=== PATIENT | male | born 1980 | race Caucasian/White ===

== ENCOUNTER 2020-11-15 06:22 | Observation (INO) | payer SELFPAY ==
--- OUTSIDE RECORDS SUMMARY | 2020-11-15 06:26 | XMS REPORT | Continuity of Care Document ---
:1980 Author Organization [facility] Address [address] [place] [address] Care Team Providers Name Role Phone KUN MEZA Attending Clinician Unavailable Payers Payer Name Policy Type Policy Number Effective Date Expiration Date S ource Problems This patient has no known problems. Allergies, Adverse Reactions, Alerts Allergy Allergy Status Severity Reaction(s) Onset Inactive Treating Comm ents Source Name Type Date Date Clinician alprazol DA Active U 2019-07 [facility] am 08-20 [place] 00:00: [facility] [place] clonazep DA Active U 2019-07 [facility] am 08-20 [place] [facility]: [facility] 00 are [place] alprazol DA Active U 2019-07 [facility] am 2- [place] 00:[facility]: [facility] 00 are [place] morphine DA Active AL 2019-07 [facility] 1-17 [place] 00:00: [facility] 00 are [place] morphine DA Active U [facility] 3-08 [place] 00:00: [facility] 00 are [place] morphine DA Active U [facility] - [place] 00:00: [facility] 00 are [place] Medications This patient has no known medications. Procedures This patient has no known procedures. Encounters Start End Encounter Admission Attending Care Care Encounter Source Date/Time Date/Time Type Type Clinicians Facility Department ID 2020-06-05 2020-06-05 Emergency [facility] [id number] [place] 00:00:00 00:00:00 KUN [address] Results Test Description Test Time Test Comments Results Result Comments Source BASIC METABOLIC PANEL 2020-07-27 21:40:00 Test Item Value Reference Range Interpretation Comme nts SODIUM (test code = NA) 139 mmol/L 136-145 N POTASSIUM (test code = K) 3.8 MMOL/L 3.6-5.2 N CHLORIDE (test code = CL) 104 MMOL/L 98-110 N CARBON DIOXIDE (test code = 27 mEq/L 24-32 N CO2) GLUCOSE (test code = GLU) 106 mg/dL 70-110 N BLOOD UREA NITROGEN (test 14 mg/dL 7-18 N code = BUN) GLOMERULAR FILTRATION RATE >=60 max estimate >60 The estimated glomerular (test code = GFR) filtration rate is computed usingpatient ra ce, age (>18), sex, and serum creatinine. If anyof the needed data amena ments are missing the Lab oratory cannot compute an estimation of the glomerul ar filtration rate. CREATININE (test code = 0.88 mg/dL 0.60-1.30 N CREAT) CALCIUM (test code = CA) 9.1 mg/dL 8.6-10.3 N BASIC METABOLIC [id number] 21:36:00 Test Item Value Reference Range Interpretation Comments SODIUM (test code = NA) mmol/L 136-145 POTASSIUM (test code = K) 3.8 MMOL/L 3.6-5.2 N CHLORIDE (test code = CL) MMOL/L 98-110 CARBON DIOXIDE (test code = CO2) mEq/L 24-32 GLUCOSE (test code = GLU) mg/dL 70-110 BLOOD UREA NITROGEN (test code = mg/dL 7-18 BUN) GLOMERULAR FILTRATION RATE (test >60 code = GFR) CREATININE (test code = CREAT) mg/dL 0.60-1.30 CALCIUM (test code = CA) mg/dL 8.6-10.3 BASIC METABOLIC [id number] 21:36:00 Test Item Value Reference Range Interpretation Comments SODIUM (test code = NA) 139 mmol/L 136-145 N POTASSIUM (test code = K) 3.8 MMOL/L 3.6-5.2 N CHLORIDE (test code = CL) 104 MMOL/L 98-110 N CARBON DIOXIDE (test code = CO2) 27 mEq/L 24-32 N GLUCOSE (test code = GLU) 106 mg/dL 70-110 N BLOOD UREA NITROGEN (test code = mg/dL 7-18 BUN) GLOMERULAR FILTRATION RATE (test >60 code = GFR) CREATININE (test code = CREAT) mg/dL 0.60-1.30 CALCIUM (test code = CA) 9.1 mg/dL 8.6-10.3 N CBC W/AUTO [id number] 21:32:00 Test Item Value Reference Range Interpretation Comments WHITE BLOOD CELL (test code = WBC) 8.93 K/mm3 5.0-12.0 N RED BLOOD CELL (test code = RBC) 5.92 M/mm3 4.70-6.10 N HEMOGLOBIN (test code = HGB) 15.8 G/DL 14.0-18.0 N HEMATOCRIT (test code = HCT) 47.9 % 38.8-50.0 N MEAN CELL VOLUME (test code = MCV) 81 fL 80-94 N MEAN CELL HGB (test code = MCH) 26.7 PGM 27-31 L MEAN CELL HGB CONCENTRATION (test 33.0 G/DL 33-37 N code = MCHC) RED CELL DISTRIBUTION WIDTH (test 13.4 % 11.6-16.2 N code = RDW) PLATELET COUNT (test code = PLT) 314 K/mm3 130-400 N MEAN PLATELET VOLUME (test code = 10.5 fl 7.4-10.4 H MPV) NEUTROPHIL % (test code = NT%) 64.9 % 43-65 N IMMATURE GRANULOCYTE % (test code 0.2 % 0.0-2.0 N = IG%) LYMPHOCYTE % (test code = LY%) 21.5 % 20.5-45.5 N MONOCYTE % (test code = MO%) 11.2 % 5.5-11.7 N EOSINOPHIL % (test code = EO%) 1.3 % 0.9-2.9 N BASOPHIL % (test code = BA%) 0.9 % 0.2-1.0 N NUCLEATED RBC % (test code = 0.0 % 0-1.0 N NRBC%) NEUTROPHIL # (test code = NT#) 5.79 K/mm3 2.2-4.8 H LYMPHOCYTE # (test code = LY#) 1.92 K/mm3 1.3-2.9 N MONOCYTE # (test code = MO#) 1.00 K/mm3 0.3-0.8 H EOSINOPHIL # (test code = EO#) 0.12 K/MM3 0.0-0.2 N BASOPHIL # (test code = BA#) 0.08 K/mm3 0.0-0.1 N TROPONIN I [id number] 21:28:00 Test Item Value Reference Range Interpretation Comments TROPONIN I RAPID 0.00 ng/mL 0.00-0.08 N ISTAT (test code = TROPONIN I TROPIRAP) CRITERIA0.00-0. 08 ng/mL - Negative>0.08 n g/mL - Positive The us e of serial sampling and te sting protocol is are commended practice.An amena vated troponin level alone is often not suffi cient fordiagnosis of myocardial infarction. Tro ponin results obtaine d by different assay s may vary.Evaluation of the extent of myoca rdial damage based on increase of troponin would be valid only if similar methodology is used. - XR CHEST 1 [id number] 21:02:00 [facility] 1980 Sex: MPatient Name: GARY JEFFREY Unit No: [id number] EXAMS: CPT: [id number] XR CHEST 1 V 20522 AP CHEST 1 VIEW COMPARISON: June 05, 2020 HISTORY: Chest Pain FINDINGS: There is no focal lung consolidation.There is no pleural effusion. There is no pneumothorax. The cardiac silhouette is normal. There is no acute osseous abnormality. IMPRESSION: 1. No acute cardiopulmonary findings at 2101 Reported and signed by: Esmer Norton MD CC: Ezekiel Barkley; Masha Schwarz GOLF INSTRUCTOR; Newton Renee MD Technologist: AMADEO Jones Time: DAP (Gy m2): Air Kerma (mGy): Trscr Dt/Tm: 07/27/2020 (2101) by:[email or web address] Orig Print D/T: S: 07/27/2020 (2104) BATCH NO: N/A Name: GARY JEFFREY [facility] Phys: Masha Castro NP [address] [facility] : 1980 Age: 40 Sex: Roni [place] Loc: T.ERS Exam Date: 07/27/2020 Status: REG ER PH: FAX: PAGE 1 Signed ReportCBC W/AUTO [id number] 21:09:00 Test Item Value Reference Range Interpretation Comments WHITE BLOOD CELL (test code = WBC) 8.96 K/mm3 5.0-12.0 N RED BLOOD CELL (test code = RBC) 6.30 M/mm3 4.70-6.10 H HEMOGLOBIN (test code = HGB) 16.5 G/DL 14.0-18.0 N HEMATOCRIT (test code = HCT) 50.7 % 38.8-50.0 H MEAN CELL VOLUME (test code = MCV) 81 fL 80-94 N MEAN CELL HGB (test code = MCH) 26.2 PGM 27-31 L MEAN CELL HGB CONCENTRATION (test 32.5 G/DL 33-37 L code = MCHC) RED CELL DISTRIBUTION WIDTH (test 13.5 % 11.6-16.2 N code = RDW) PLATELET COUNT (test code = PLT) 339 K/mm3 130-400 N MEAN PLATELET VOLUME (test code = 10.7 fl 7.4-10.4 H MPV) NEUTROPHIL % (test code = NT%) 63.0 % 43-65 N IMMATURE GRANULOCYTE % (test code 0.2 % 0.0-2.0 N = IG%) LYMPHOCYTE % (test code = LY%) 24.7 % 20.5-45.5 N MONOCYTE % (test code = MO%) 10.9 % 5.5-11.7 N EOSINOPHIL % (test code = EO%) 0.6 % 0.9-2.9 L BASOPHIL % (test code = BA%) 0.6 % 0.2-1.0 N NUCLEATED RBC % (test code = 0.0 % 0-1.0 N NRBC%) NEUTROPHIL # (test code = NT#) 5.65 K/mm3 2.2-4.8 H LYMPHOCYTE # (test code = LY#) 2.21 K/mm3 1.3-2.9 N MONOCYTE # (test code = MO#) 0.98 K/mm3 0.3-0.8 H EOSINOPHIL # (test code = EO#) 0.05 K/MM3 0.0-0.2 N BASOPHIL # (test code = BA#) 0.05 K/mm3 0.0-0.1 N VANCOMYCIN [id number] 08:37:00 Test Item Value Reference Range Interpretation Comments VANCOMYCIN TROUGH (test code = 11.0 ug/ml 10.0-20.0 N VANCT) VANCOMYCIN [id number] 20:20:00 Test Item Value Reference Range Interpretation Comments VANCOMYCIN TROUGH (test code = 13.7 ug/ml 10.0-20.0 N VANCT) COVID 19 Asymptomatic IH [id number] 11:59:00 Test Item Value Reference Range Interpretation Comments COVID 19 Asymptomatic NEGATIVE Negative NEGAT SELVIN RESULTS IH AG (test code = SHOULD BE TREATED COVNONPUIAG) PRESUMPTIVE ANDCONFIRMED WT IH A MOLECULAR ASSAY , IF NECESSARY FOR PATIENTMANAGEME NT. NEGATIVE RESULT S DO NOT RULE OUT CO VID-19 ANDSHOULD NOT B E USED THE SOLE BAS IS FOR TREATMENT ORPAT IENT MANAGEMENT DECI SIONS, INCLUDING INFEC TION CONTROLDECISION S. NEGATIVE RESULT S SHOULD BE CONSI DERED IN THECONTEXT O F A PATIENT'S RECEN T EXPOSURES, HIST ORY AND THEPRESENCE OF CLINICAL SIGNS AND SYMPTOMS CONSIS TENT WITHCOVID-19. COMPREHENSIVE METABOLIC [id number] 16:12:00 Test Item Value Reference Range Interpretation Comments SODIUM (test code 139 mmol/L 136-145 N = NA) POTASSIUM (test 3.8 MMOL/L 3.6-5.2 N code = K) CHLORIDE (test 103 MMOL/L 98-110 N code = CL) CARBON DIOXIDE 28 mEq/L 24-32 N (test code = CO2) GLUCOSE (test code 88 mg/dL 70-110 N = GLU) BLOOD UREA 9 mg/dL 7-18 N NITROGEN (test code = BUN) GLOMERULAR >=60 max >60 The estimated FILTRATION RATE estimate glomerular f iltration (test code = GFR) rate is co mputed usingpatient ra ce, age (>18), sex, and serum creatinin e. If anyof the neede d data elements are mi ssing the Laboratory cannot compute an alejandro mation of the glomerul ar filtration rate . CREATININE (test 0.83 mg/dL 0.60-1.30 N code = CREAT) TOTAL PROTEIN 7.0 g/dL 6.0-8.3 N (test code = PROT) ALBUMIN (test code 3.4 g/dL 3.2-5.5 N = ALB) CALCIUM (test code 8.9 mg/dL 8.6-10.3 N = CA) BILIRUBIN TOTAL 0.6 mg/dL 0.2-1.0 N D-gxsung-g-b enzoquino (test code = BILT) ne imine (NAPQI), a metabolite ofacetaminophen (paracetamol), may generate errone ously lowresults in s amples for patients th at have taken toxi c dosesof acetami nophen (paracetamol). SGOT/AST (test 22 UNITS/L 10-42 N code = AST) SGPT/ALT (test 25 UNITS/L 10-40 N code = ALT) ALKALINE 77 UNITS/L 38-126 N PHOSPHATASE (test code = ALKP) CBC W/O [id number] 15:54:00 Test Item Value Reference Range Interpretation Comments WHITE BLOOD CELL (test code = 10.78 K/mm3 5.0-12.0 N WBC) RED BLOOD CELL (test code = RBC) 5.22 M/mm3 4.70-6.10 N HEMOGLOBIN (test code = HGB) 13.9 G/DL 14.0-18.0 L HEMATOCRIT (test code = HCT) 42.9 % 38.8-50.0 N MEAN CELL VOLUME (test code = 82 fL 80-94 N MCV) MEAN CELL HGB (test code = MCH) 26.6 PGM 27-31 L MEAN CELL HGB CONCENTRATION (test 32.4 G/DL 33-37 L code = MCHC) RED CELL DISTRIBUTION WIDTH (test 13.4 % 11.6-16.2 N code = RDW) PLATELET COUNT (test code = PLT) 370 K/mm3 130-400 N [id number] 05:16:00 Test Item Value Reference Range Interpretation Comments PHOSPHOROUS (test code = PHOS) 2.2 mg/dL 2.5-4.9 L [id number] 05:16:00 Test Item Value Reference Range Interpretation Comments MAGNESIUM (test code = MAG) 2.3 mg/dL 1.7-2.8 N THYROID STIMULATING [id number] 05:16:00 Test Item Value Reference Range Interpretation Comments THYROID STIMULATING HORMONE (test 3.52 mIU/mL 0.38-5.60 N code = TSH) [id number] 04:57:00 Test Item Value Reference Range Interpretation Comments PHOSPHOROUS (test code = PHOS) 2.2 mg/dL 2.5-4.9 L [id number] 04:57:00 Test Item Value Reference Range Interpretation Comments MAGNESIUM (test code = MAG) 2.3 mg/dL 1.7-2.8 N THYROID STIMULATING [id number] 04:57:00 Test Item Value Reference Range Interpretation Comments THYROID STIMULATING HORMONE (test mIU/mL 0.38-5.60 code = TSH) DRUGS OF ABUSE SCREEN [id number] 03:49:00 Test Item Value Reference Range Interpretation Comments UR COCAINE (test code = COCAU) NEGATIVE NEGATIVE UR METHAMPHETAMINE (test code = NEGATIVE NEGATIVE METHAMPHU) UR CANABINOIDS (test code = CANU) NEGATIVE NEGATIVE UR AMPHETAMINE (test code = AMPHU) NEGATIVE NEGATIVE UR BARBITURATE (test code = BARBQLU) NEGATIVE NEGATIVE UR BENZODIAZEPINE (test code = NEGATIVE NEGATIVE BENZU) METHADONE (test code = METHDU) NEGATIVE NEGATIVE PROPOXYPHENE SCREEN (test code = NEGATIVE NEGATIVE PROPXSQ) UR OPIATES QUAL (test code = NEGATIVE NEGATIVE OPIAQLU) OXYCODONE (test code = OXYCOD) NEGATIVE NEGATIVE UR TRICYCLICS (test code = TRICYCU) NEGATIVE NEGATIVE UR PHENCYCLIDINE (PCP) (test code = NEGATIVE NEGATIVE PHENCU) UR BUPRENORPHINE QUAL (test code = NEGATIVE NEGATIVE BUPRESCRT) BASIC METABOLIC [id number] 03:09:00 Test Item Value Reference Range Interpretation Comments SODIUM (test code 138 mmol/L 136-145 N = NA) POTASSIUM (test 4.0 MMOL/L 3.6-5.2 N code = K) CHLORIDE (test 105 MMOL/L 98-110 N code = CL) CARBON DIOXIDE 25 mEq/L 24-32 N (test code = CO2) GLUCOSE (test code 101 mg/dL 70-110 N = GLU) BLOOD UREA 25 mg/dL 7-18 H NITROGEN (test code = BUN) GLOMERULAR >=60 max >60 The estimated FILTRATION RATE estimate glomerular (test code = GFR) filtration rate is computed usingpatient ra ce, age (>18), sex, and serum creatinin e. If anyof the neede d data elements a re missing the Laboratory howie ot compute an estimation of t he glomerular filtration rate . CREATININE (test 1.05 mg/dL 0.60-1.30 N code = CREAT) CALCIUM (test code 9.7 mg/dL 8.6-10.3 N = CA) CBC W/AUTO [id number] 03:08:00 Test Item Value Reference Range Interpretation Comments WHITE BLOOD CELL (test code = 11.38 K/mm3 5.0-12.0 N WBC) RED BLOOD CELL (test code = RBC) 5.93 M/mm3 4.70-6.10 N HEMOGLOBIN (test code = HGB) 15.9 G/DL 14.0-18.0 N HEMATOCRIT (test code = HCT) 48.2 % 38.8-50.0 N MEAN CELL VOLUME (test code = 81 fL 80-94 N MCV) MEAN CELL HGB (test code = MCH) 26.8 PGM 27-31 L MEAN CELL HGB CONCENTRATION (test 33.0 G/DL 33-37 N code = MCHC) RED CELL DISTRIBUTION WIDTH (test 13.2 % 11.6-16.2 N code = RDW) PLATELET COUNT (test code = PLT) 325 K/mm3 130-400 N MEAN PLATELET VOLUME (test code = 10.9 fl 7.4-10.4 H MPV) NEUTROPHIL % (test code = NT%) 65.3 % 43-65 H IMMATURE GRANULOCYTE % (test code 0.5 % 0.0-2.0 N = IG%) LYMPHOCYTE % (test code = LY%) 18.0 % 20.5-45.5 L MONOCYTE % (test code = MO%) 14.8 % 5.5-11.7 H EOSINOPHIL % (test code = EO%) 0.7 % 0.9-2.9 L BASOPHIL % (test code = BA%) 0.7 % 0.2-1.0 N NUCLEATED RBC % (test code = 0.0 % 0-1.0 N NRBC%) NEUTROPHIL # (test code = NT#) 7.43 K/mm3 2.2-4.8 H LYMPHOCYTE # (test code = LY#) 2.05 K/mm3 1.3-2.9 N MONOCYTE # (test code = MO#) 1.68 K/mm3 0.3-0.8 H EOSINOPHIL # (test code = EO#) 0.08 K/MM3 0.0-0.2 N BASOPHIL # (test code = BA#) 0.08 K/mm3 0.0-0.1 N BASIC METABOLIC [id number] 03:07:00 Test Item Value Reference Range Interpretation Comments SODIUM (test code = NA) 138 mmol/L 136-145 N POTASSIUM (test code = K) 4.0 MMOL/L 3.6-5.2 N CHLORIDE (test code = CL) 105 MMOL/L 98-110 N CARBON DIOXIDE (test code = CO2) 25 mEq/L 24-32 N GLUCOSE (test code = GLU) 101 mg/dL 70-110 N BLOOD UREA NITROGEN (test code = mg/dL 7-18 BUN) GLOMERULAR FILTRATION RATE (test >60 code = GFR) CREATININE (test code = CREAT) mg/dL 0.60-1.30 CALCIUM (test code = CA) 9.7 mg/dL 8.6-10.3 N BASIC METABOLIC [id number] 03:05:00 Test Item Value Reference Range Interpretation Comments SODIUM (test code = NA) mmol/L 136-145 POTASSIUM (test code = K) 4.0 MMOL/L 3.6-5.2 N CHLORIDE (test code = CL) MMOL/L 98-110 CARBON DIOXIDE (test code = CO2) mEq/L 24-32 GLUCOSE (test code = GLU) mg/dL 70-110 BLOOD UREA NITROGEN (test code = mg/dL 7-18 BUN) GLOMERULAR FILTRATION RATE (test >60 code = GFR) CREATININE (test code = CREAT) mg/dL 0.60-1.30 CALCIUM (test code = CA) mg/dL 8.6-10.3 TROPONIN I [id number] 02:43:00 Test Item Value Reference Range Interpretation Comments TROPONIN I RAPID 0.00 ng/mL 0.00-0.08 N ISTAT (test code = TROPONIN I TROPIRAP) CRITERIA0.00-0. 08 ng/mL - Negative>0.08 n g/mL - Positive The us e of serial sampling and te sting protocol is are commended practice.An amena vated troponin level alone is often not suffi cient fordiagnosis of myocardial infarction. Tro ponin results obtaine d by different assay s may vary.Evaluation of the extent of myoca rdial damage based on increase of troponin would be valid only if similar methodology is used. - XR CHEST 1 [id number] 02:21:00 [facility] 1980 Sex: MPatient Name: GARY JEFFREY Unit No: [id number] EXAMS: CPT: [id number] XR CHEST 1 V 00006 CHEST 1 VIEW CLINICAL HISTORY: Chest pain COMPARISON: 05/21/2020. A single frontal view of the chest is submitted. FINDINGS: The cardiac silhouette is normal in size. Vascularity appears normal.The lungs are clear. No pleural effusion or pneumothorax is seen. No osseous abnormalities are seen. IMPRESSION: Negative chest radiograph. at 0221 Reported and signed by: Davonte Ceron MD CC: Oswaldo Cordoba MD; Ezekiel Wick MD Technologist: Mo Bermudez Fluoro Time: DAP (Gy m2): Air Kerma (mGy): Trscr Dt/Tm: 06/05/2020 (220) by:[email or web address] Orig Print D/T: S: 06/05/2020 (0224) BATCH NO: N/A Name: GARY JEFFREY [facility] Ab[facility] Phys: BERDANIEL.Emy - Oswaldo Cordoba Michelle [address] [facility] : 1980 Age: 40 Sex: Michelle [place] Loc: T.ERS Exam Date: 06/05/2020 Status: REG ER PH: FAX: PAGE 1 Signed ReportCBC W/AUTO [id number] 00:16:00 Test Item Value Reference Range Interpretation Comments WHITE BLOOD CELL (test code = 10.58 K/mm3 5.0-12.0 N WBC) RED BLOOD CELL (test code = RBC) 6.18 M/mm3 4.70-6.10 H HEMOGLOBIN (test code = HGB) 16.6 G/DL 14.0-18.0 N HEMATOCRIT (test code = HCT) 50.0 % 38.8-50.0 N MEAN CELL VOLUME (test code = 81 fL 80-94 N MCV) MEAN CELL HGB (test code = MCH) 26.9 PGM 27-31 L MEAN CELL HGB CONCENTRATION (test 33.2 G/DL 33-37 N code = MCHC) RED CELL DISTRIBUTION WIDTH (test 13.2 % 11.6-16.2 N code = RDW) PLATELET COUNT (test code = PLT) 322 K/mm3 130-400 N MEAN PLATELET VOLUME (test code = 11.0 fl 7.4-10.4 H MPV) NEUTROPHIL % (test code = NT%) 71.9 % 43-65 H IMMATURE GRANULOCYTE % (test code 0.4 % 0.0-2.0 N = IG%) LYMPHOCYTE % (test code = LY%) 17.6 % 20.5-45.5 L MONOCYTE % (test code = MO%) 8.8 % 5.5-11.7 N EOSINOPHIL % (test code = EO%) 0.8 % 0.9-2.9 L BASOPHIL % (test code = BA%) 0.5 % 0.2-1.0 N NUCLEATED RBC % (test code = 0.0 % 0-1.0 N NRBC%) NEUTROPHIL # (test code = NT#) 7.62 K/mm3 2.2-4.8 H LYMPHOCYTE # (test code = LY#) 1.86 K/mm3 1.3-2.9 N MONOCYTE # (test code = MO#) 0.93 K/mm3 0.3-0.8 H EOSINOPHIL # (test code = EO#) 0.08 K/MM3 0.0-0.2 N BASOPHIL # (test code = BA#) 0.05 K/mm3 0.0-0.1 N REDRAW-CLOTTED [id number]/[id number] 2346BASIC METABOLIC [id number] 23:52:00 Test Item Value Reference Range Interpretation Comments SODIUM (test code 137 mmol/L 136-145 N = NA) POTASSIUM (test 5.2 MMOL/L 3.6-5.2 N code = K) CHLORIDE (test 102 MMOL/L 98-110 N code = CL) CARBON DIOXIDE 22 mEq/L 24-32 L (test code = CO2) GLUCOSE (test code 95 mg/dL 70-110 N = GLU) BLOOD UREA 18 mg/dL 7-18 N NITROGEN (test code = BUN) GLOMERULAR >=60 max >60 The estimated FILTRATION RATE estimate glomerular (test code = GFR) filtration rate is computed usingpatient ra ce, age (>18), sex, and serum creatinin e. If anyof the neede d data elements a re missing the Laboratory howie ot compute an estimation of t he glomerular filtration rate . CREATININE (test 0.94 mg/dL 0.60-1.30 N code = CREAT) CALCIUM (test code 9.8 mg/dL 8.6-10.3 N = CA) REDRAW-HEMOSVEN 9BASIC METABOLIC [id number] 23:48:00 Test Item Value Reference Range Interpretation Comments SODIUM (test code = NA) mmol/L 136-145 POTASSIUM (test code = K) 5.2 MMOL/L 3.6-5.2 N CHLORIDE (test code = CL) MMOL/L 98-110 CARBON DIOXIDE (test code = CO2) mEq/L 24-32 GLUCOSE (test code = GLU) mg/dL 70-110 BLOOD UREA NITROGEN (test code = mg/dL 7-18 BUN) GLOMERULAR FILTRATION RATE (test >60 code = GFR) CREATININE (test code = CREAT) mg/dL 0.60-1.30 CALCIUM (test code = CA) mg/dL 8.6-10.3 REDRAW-HEMOSVEN 2319BASIC METABOLIC [id number] 23:48:00 Test Item Value Reference Range Interpretation Comments SODIUM (test code = NA) 137 mmol/L 136-145 N POTASSIUM (test code = K) 5.2 MMOL/L 3.6-5.2 N CHLORIDE (test code = CL) 102 MMOL/L 98-110 N CARBON DIOXIDE (test code = CO2) 22 mEq/L 24-32 L GLUCOSE (test code = GLU) 95 mg/dL 70-110 N BLOOD UREA NITROGEN (test code = mg/dL 7-18 BUN) GLOMERULAR FILTRATION RATE (test >60 code = GFR) CREATININE (test code = CREAT) mg/dL 0.60-1.30 CALCIUM (test code = CA) 9.8 mg/dL 8.6-10.3 N REDRAW-HEMOSVEN [id number] - GLYCOSYLATED [id number] 11:49:00 Test Item Value Reference Range Interpretation Comments GLYCOSYLATED HEMOGLOBIN (HA1C) (test 5.2 % 4.0-6.0 N code = GLYHGB) LIPID PROFILE (CORONARY RISK)2020-05-22 05:40:00 Test Item Value Reference Range Interpretation Comments TRIGLYCERIDES (test 87 mg/dL 35-160 N N-acetyl -p-benzoquinone code = TRIG) imine (NAPQI), a metabolite ofacetaminophen (paracetamol), may generate errone ously lowresults in s amples for patients th at have taken toxic dos esof acetaminophen (paracetamol). CHOLESTEROL (test 209 mg/dL 50-200 H code = CHOL) HDL CHOLESTEROL (test 36 mg/dL 29-71 N code = HDL) LIPOPROTEIN LDL HAYDEN 156 MG/DL 10-130 H (test code = LDLC) CORONARY RISK FACTOR 5.81 (test code = RISK) CHOL/HDL RISK MALE: 1/2 AVG 3.43 FEMALE: 1/2 AV G 3.27 AVG 4.97 AV G 4.44 2X AVG 9.55 2X AV G 7.05 3X AVG 23.39 3X AVG 11.04~~~~~~~~~~ ~~~~~~~~ ~~~~~~~~~~~~~~~ ~~~~~~~~ ~~~~~~~~~~~~~~~ ~~~~Nanette onal Cholestero l Education (NCEP ) Guidelines:~~~~ ~~~~~~~~ ~~~~~~~~~~~~~~~ ~~~~~~~~ ~~~~~~~~~~~~~~~ ~~~~~~~~ ~~ HDL Cholesterol<4 0mg/dL: HDL Cholesterol (Major risk factor for CHD)>60mg/dL: H DL Cholesterol (Ne gative risk factor for CHD)40-59mg/dL: Borderline Risk LD L Cholesterol<1 00mg/dL: Desirable LDL-C [id number] 0-159mg/ dL: Borderline High Risk LDL-C [id number] 0-189mg/ dL: High risk L DL-C concentration H DL-LDL Cholesterol is affected by a number of factors suchas smoking, age and sex.~~~~~~~~~~~ ~~~~~~~~ ~~~~~~~~~~~~~~~ ~~~~~~~~ ~~~~~~~~~~~~~~~ ~~~ [id number] 05:38:00 Test Item Value Reference Range Interpretation Comments TROPONIN-I 0.01 ng/mL 0.00-0.03 N Correlation wit h serial (test code = results, other cardiac TROPI) markers andclin ical findings is necessary to determine the clinicalsignifi cance of this result. Results using different metho dologies should not be c omparedto one another as dannielle titative results may lance y by method. [id number] 00:33:00 Test Item Value Reference Range Interpretation Comments TROPONIN-I 0.00 ng/mL 0.00-0.03 N Correlation wit h serial (test code = results, other cardiac TROPI) markers andclin ical findings is necessary to determine the clinicalsignifi cance of this result. Results using different metho dologies should not be c omparedto one another as dannielle titative results may lance y by method. [id number] 00:33:00 Test Item Value Reference Range Interpretation Comments D-DIMER (test 245 ng/mLFEU 0-500 N THE DDIMER MET HOD IS USED IN code = THE EXCLUSION O F DEEP DDIMER) VEINTHROMBOSIS AND/OR PULMONARY EMBOL ISM AND THE CLINICAL CUT-OF F VALUE FOR EXCLUSION (500 NG/ML FEU) OF THESE CONDITION SIS VALIDATED BY THE MANUFACT URER OF THE METHOD. A NEGAT SELVIN DDIMER RESULT WHEN COM BINED WITH A CLINICALASSESSM ENT OF LOW PRETEST PROBABI LITY HAS BEEN SHOWN TO HAVEA HIGH NEGATIVE PREDICTIVE VALU E OF DVT OR PE. D-DIMER RAFFI UES >500 ng/mL ARE NOT D IAGNOSTIC FOR DVT,PEOR DIC WI THOUT OTHER CONFIRMATORY TE STS AND APPROPRIATECLIN ICAL EVALUATIONS. [id number] 19:42:00 Test Item Value Reference Range Interpretation Comments TROPONIN-I 0.00 ng/mL 0.00-0.03 N Correlation wit h serial (test code = results, other cardiac TROPI) markers andclin ical findings is necessary to determine the clinicalsignifi cance of this result. Results using different metho dologies should not be c omparedto one another as dannielle titative results may lance y by method. BASIC METABOLIC [id number] 14:16:00 Test Item Value Reference Range Interpretation Comments SODIUM (test code 137 mmol/L 136-145 N = NA) POTASSIUM (test 4.0 MMOL/L 3.6-5.2 N code = K) CHLORIDE (test 101 MMOL/L 98-110 N code = CL) CARBON DIOXIDE 25 mEq/L 24-32 N (test code = CO2) GLUCOSE (test code 93 mg/dL 70-110 N = GLU) BLOOD UREA 16 mg/dL 7-18 N NITROGEN (test code = BUN) GLOMERULAR >=60 max >60 The estimated FILTRATION RATE estimate glomerular (test code = GFR) filtration rate is computed usingpatient ra ce, age (>18), sex, and serum creatinin e. If anyof the neede d data elements a re missing the Laboratory howie ot compute an estimation of t he glomerular filtration rate . CREATININE (test 1.10 mg/dL 0.60-1.30 N code = CREAT) CALCIUM (test code 9.4 mg/dL 8.6-10.3 N = CA) LIVER FUNCTION [id number] 14:16:00 Test Item Value Reference Range Interpretation Comments TOTAL PROTEIN (test 8.1 g/dL 6.0-8.3 N code = PROT) ALBUMIN (test code = 4.5 g/dL 3.2-5.5 N ALB) BILIRUBIN TOTAL 1.0 mg/dL 0.2-1.0 N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 mg/dL 8.6-10.3 N = CA) BILIRUBIN TOTAL 1.5 mg/dL 0.2-1.0 H K-qokdoq-x-b enzoquino (test code = BILT) ne imine (NAPQI), a metabolite ofacetaminophen (paracetamol), may generate errone ously lowresults in s amples for patients th at have taken toxi c dosesof acetami nophen (paracetamol). SGOT/AST (test 13 UNITS/L 10-42 N code = AST) SGPT/ALT (test 21 UNITS/L 10-40 N code = ALT) ALKALINE 56 UNITS/L 38-126 N PHOSPHATASE (test code = ALKP) [id number] 07:01:00 Test Item Value Reference Range Interpretation Comments PHOSPHOROUS (test code = PHOS) 2.6 mg/dL 2.5-4.9 N [id number] 07:01:00 Test Item Value Reference Range Interpretation Comments MAGNESIUM (test code = MAG) 2.0 mg/dL 1.7-2.8 N CBC W/AUTO [id number] 06:31:00 Test Item Value Reference Range Interpretation Comments WHITE BLOOD CELL (test code = 10.80 K/mm3 5.0-12.0 N WBC) RED BLOOD CELL (test code = RBC) 5.50 M/mm3 4.70-6.10 N HEMOGLOBIN (test code = HGB) 14.6 G/DL 14.0-18.0 N HEMATOCRIT (test code = HCT) 45.5 % 37.0-49.0 N MEAN CELL VOLUME (test code = 83 fL 80-94 N MCV) MEAN CELL HGB (test code = MCH) 26.5 PGM 27-31 L MEAN CELL HGB CONCENTRATION (test 32.1 G/DL 33-37 L code = MCHC) RED CELL DISTRIBUTION WIDTH (test 13.2 % 11.6-16.2 N code = RDW) PLATELET COUNT (test code = PLT) 240 K/mm3 130-400 N MEAN PLATELET VOLUME (test code = 10.7 fl 7.4-10.4 H MPV) NEUTROPHIL % (test code = NT%) 71.8 % 43-65 H IMMATURE GRANULOCYTE % (test code 0.5 % 0.0-2.0 N = IG%) LYMPHOCYTE % (test code = LY%) 13.9 % 20.5-45.5 L MONOCYTE % (test code = MO%) 11.3 % 5.5-11.7 N EOSINOPHIL % (test code = EO%) 1.9 % 0.9-2.9 N BASOPHIL % (test code = BA%) 0.6 % 0.2-1.0 N NUCLEATED RBC % (test code = 0.0 % 0-1.0 N NRBC%) NEUTROPHIL # (test code = NT#) 7.75 K/mm3 2.2-4.8 H LYMPHOCYTE # (test code = LY#) 1.50 K/mm3 1.3-2.9 N MONOCYTE # (test code = MO#) 1.22 K/mm3 0.3-0.8 H EOSINOPHIL # (test code = EO#) 0.21 K/MM3 0.0-0.2 H BASOPHIL # (test code = BA#) 0.07 K/mm3 0.0-0.1 N [id number] 15:08:00 Test Item Value Reference Range Interpretation Comments PHOSPHOROUS (test code = PHOS) 3.5 mg/dL 2.5-4.9 N CREATINE KINASE (CK)2019-09-08 15:08:00 Test Item Value Reference Range Interpretation Comments CREATINE KINASE (CK) 79 UNITS/L 25-140 N [employer] DxC 600i:DUE TO (test code = CK) THE INSTRUM ENT'S ESTABLISHED MEMO EAR RANGES, ANYPATI ENT RESULT THAT IS ABOVE THE HIGH LINEAR RANGE, MUST BEREPORTED >24,000 IU/L. [id number] 15:08:00 Test Item Value Reference Range Interpretation Comments MAGNESIUM (test code = MAG) 1.9 mg/dL 1.7-2.8 N THYROID STIMULATING [id number] 15:08:00 Test Item Value Reference Range Interpretation Comments THYROID STIMULATING HORMONE (test 3.28 mIU/mL 0.38-5.60 N code = TSH) [id number] 15:08:00 Test Item Value Reference Range Interpretation Comments TROPONIN-I (test code = TROPI) 0.00 ng/mL 0.00-0.03 N PROCALCITONIN (PCT)2019-09-08 11:43:00 Test Item Value Reference Range Interpretation Comments PROCALCITONIN (PCT) (test code = < 0.05 ng/mL 0.00-0.50 N PROCAL) LACTIC [id number] 11:27:00 Test Item Value Reference Range Interpretation Comments LACTIC ACID (test code = LACT) 0.90 mmol/L 0.5-2.2 N - CT ABD PELVIS [id number] 11:08:00Patient Name: GARY JEFFREY Unit No: [id number] EXAMS: CPT: [id number] CT ABD PELVIS W/CONT [id number] CT ABDOMEN AND PELVIS WITH CONTRAST: HISTORY: Left lower quadrant pain, history of diverticulitis COMPARISON: 06/14/2018 TECHNIQUE: CT radiation dose optimization was achieved for this examination by the use of a CT protocol in accordance with ACR ([employer]) practice guidelines and adherence to customer engagement manager's recommendations. Exam was obtained following intravenous injection of 100 mL of Isovue-300 nonionic contrast. Radiation exposure: CTDI vol 17.1 mGy, DLP 952.55 mGy-cm. FINDINGS: 1. The liver, spleen, pancreas, adrenal glands and kidneys appear normal. The gallbladder is of normal size. 2. No lymphadenopathy, mass or fluid collection is seen. 3.Thickening of the wall of the sigmoid colon and haziness of the adjacent mesentery compatible with acute diverticulitis. The finding is in a similar location to the prior exam. No peridiverticular fluid collection or free fluid in the pelvis. 4. No free intraperitoneal air is seen. 5. The lung bases are clear. 6. Urinarybladder appears unremarkable. Prostate not enlarged. Medullary renata and hip nail within the proximal right femur. IMPRESSION: Findings of acute sigmoid diverticulitis. at 1108 Reported and signed by: Edward Langley MD CC: Wally Matos MD Technologist: Breanna Harry CTDI: 17.10 DLP: 952.55 Trs Dt/Tm: 09/08/2019 (1108) by:[email or web address] Orig Print D/T: S: 09/08/2019 (1111) BATCH NO: N/A Name: GARY JEFFREY [facility] [place] Phys: [id number] - Wally Matos [address] [facility] : 1980 Age: 39 Sex: [place] Loc: TTamelaERS Exam Date: 09/08/2019 Status: REG ER PH: FAX: PAGE 1 Signed ReportCOMPREHENSIVE METABOLIC [id number] 10:40:00 Test Item Value Reference Range Interpretation Comments SODIUM (test code = 135 mmol/L 136-145 L NA) POTASSIUM (test 3.9 MMOL/L 3.6-5.2 N code = K) CHLORIDE (test code 99 MMOL/L 98-110 N = CL) CARBON DIOXIDE 26 mEq/L 24-32 N (test code = CO2) GLUCOSE (test code 101 mg/dL 70-110 N = GLU) BLOOD UREA NITROGEN 15 mg/dL 7-18 N (test code = BUN) GLOMERULAR >=60 max >60 The estimated FILTRATION RATE estimate glomerular (test code = GFR) filtration rate is computed usingpatient ra ce, age (>18), sex, and serum creatinin e. If anyof the ne eded data elements a re missing the Laboratory howie ot compute an estimation of t he glomerular filtration rate . CREATININE (test 1.04 mg/dL 0.60-1.30 N code = CREAT) TOTAL PROTEIN (test g/dL 6.0-8.3 code = PROT) ALBUMIN (test code g/dL 3.2-5.5 = ALB) CALCIUM (test code 9.3 mg/dL 8.6-10.3 N = CA) BILIRUBIN TOTAL mg/dL 0.2-1.0 (test code = BILT) SGOT/AST (test code UNITS/L 10-42 = AST) SGPT/ALT (test code UNITS/L 10-40 = ALT) ALKALINE UNITS/L 38-126 PHOSPHATASE (test code = ALKP) [id number] 10:40:00 Test Item Value Reference Range Interpretation Comments LIPASE (test code = LIP) UNITS/L 22-151 COMPREHENSIVE METABOLIC [id number] 10:40:00 Test Item Value Reference Range Interpretation Comments SODIUM (test code 135 mmol/L 136-145 L = NA) POTASSIUM (test 3.9 MMOL/L 3.6-5.2 N code = K) CHLORIDE (test 99 MMOL/L 98-110 N code = CL) CARBON DIOXIDE 26 mEq/L 24-32 N (test code = CO2) GLUCOSE (test code 101 mg/dL 70-110 N = GLU) BLOOD UREA 15 mg/dL 7-18 N NITROGEN (test code = BUN) GLOMERULAR >=60 max >60 The estimated FILTRATION RATE estimate glomerular f iltration (test code = GFR) rate is co mputed usingpatient ra ce, age (>18), sex, and serum creatinin e. If anyof the neede d data elements are mi ssing the Laboratory cannot compute an alejandro mation of the glomerul ar filtration rate . CREATININE (test 1.04 mg/dL 0.60-1.30 N code = CREAT) TOTAL PROTEIN 7.5 g/dL 6.0-8.3 N (test code = PROT) ALBUMIN (test code 4.4 g/dL 3.2-5.5 N = ALB) CALCIUM (test code 9.3 mg/dL 8.6-10.3 N = CA) BILIRUBIN TOTAL 1.5 mg/dL 0.2-1.0 H V-fjhsqo-i-b enzoquino (test code = BILT) ne imine (NAPQI), a metabolite ofacetaminophen (paracetamol), may generate errone ously lowresults in s amples for patients th at have taken toxi c dosesof acetami nophen (paracetamol). SGOT/AST (test 18 UNITS/L 10-42 N code = AST) SGPT/ALT (test 28 UNITS/L 10-40 N code = ALT) ALKALINE 72 UNITS/L 38-126 N PHOSPHATASE (test code = ALKP) [id number] 10:40:00 Test Item Value Reference Range Interpretation Comments LIPASE (test code = LIP) 29 UNITS/L 22-151 N URINALYSIS [id number] 10:32:00 Test Item Value Reference Range Interpretation Comments UA COLOR (test code = COLU) DARK YELLOW YELLOW UA APPEARANCE (test code = CLEAR CLEAR APPU) UA GLUCOSE DIPSTICK (test code NEGATIVE MG/AL NEGATIVE = DGLUU) UA BILIRUBIN DIPSTICK (test NEGATIVE NEGATIVE code = BILU) UA KETONE DIPSTICK (test code NEGATIVE MG/DL NEGATIVE = KETU) UA SPECIFIC GRAVITY (test code 1.025 1.000-1.030 = SGU) UA BLOOD DIPSTICK (test code = NEGATIVE NEGATIVE GUERO) UA PH DIPSTICK (test code = 7.0 4.5-8.5 HALEY) UA PROTEIN DIPSTICK (test code TRACE NEGATIVE A = PROU) UA UROBILINOGEN DIPSTICK (test 1.0 EU/dL <=1.0 code = URO) UA NITRITE DIPSTICK (test code NEGATIVE NEGATIVE = THEO) UA LEUKOCYTE ESTERASE DIPSTICK NEGATIVE NEGATIVE (test code = LEUU) UA WBC (test code = WBCU) 0-3 /HPF 0-3 UA RBC (test code = RBCU) 0-3 /HPF 0-3 UA EPITHELIAL CELLS (test code FEW /LPF NONE-FEW = EPIU) UA BACTERIA (test code = BACU) FEW /HPF NEGATIVE COMPREHENSIVE METABOLIC [id number] 10:32:00 Test Item Value Reference Range Interpretation Comments SODIUM (test code = NA) mmol/L 136-145 POTASSIUM (test code = K) 3.9 MMOL/L 3.6-5.2 N CHLORIDE (test code = CL) MMOL/L 98-110 CARBON DIOXIDE (test code = CO2) mEq/L 24-32 GLUCOSE (test code = GLU) mg/dL 70-110 BLOOD UREA NITROGEN (test code = mg/dL 7-18 BUN) GLOMERULAR FILTRATION RATE (test >60 code = GFR) CREATININE (test code = CREAT) mg/dL 0.60-1.30 TOTAL PROTEIN (test code = PROT) g/dL 6.0-8.3 ALBUMIN (test code = ALB) g/dL 3.2-5.5 CALCIUM (test code = CA) mg/dL 8.6-10.3 BILIRUBIN TOTAL (test code = BILT) mg/dL 0.2-1.0 SGOT/AST (test code = AST) UNITS/L 10-42 SGPT/ALT (test code = ALT) UNITS/L 10-40 ALKALINE PHOSPHATASE (test code = UNITS/L 38-126 ALKP) [id number] 10:32:00 Test Item Value Reference Range Interpretation Comments LIPASE (test code = LIP) UNITS/L 22-151 COMPREHENSIVE METABOLIC [id number] 10:32:00 Test Item Value Reference Range Interpretation Comments SODIUM (test code = NA) 135 mmol/L 136-145 L POTASSIUM (test code = K) 3.9 MMOL/L 3.6-5.2 N CHLORIDE (test code = CL) 99 MMOL/L 98-110 N CARBON DIOXIDE (test code = CO2) 26 mEq/L 24-32 N GLUCOSE (test code = GLU) 101 mg/dL 70-110 N BLOOD UREA NITROGEN (test code = mg/dL 7-18 BUN) GLOMERULAR FILTRATION RATE (test >60 code = GFR) CREATININE (test code = CREAT) mg/dL 0.60-1.30 TOTAL PROTEIN (test code = PROT) g/dL 6.0-8.3 ALBUMIN (test code = ALB) g/dL 3.2-5.5 CALCIUM (test code = CA) 9.3 mg/dL 8.6-10.3 N BILIRUBIN TOTAL (test code = BILT) mg/dL 0.2-1.0 SGOT/AST (test code = AST) UNITS/L 10-42 SGPT/ALT (test code = ALT) UNITS/L 10-40 ALKALINE PHOSPHATASE (test code = UNITS/L 38-126 ALKP) [id number] 10:32:00 Test Item Value Reference Range Interpretation Comments LIPASE (test code = LIP) UNITS/L 22-151 CBC W/AUTO [id number] 10:30:00 Test Item Value Reference Range Interpretation Comments WHITE BLOOD CELL (test code = 17.31 K/mm3 5.0-12.0 H WBC) RED BLOOD CELL (test code = RBC) 6.44 M/mm3 4.70-6.10 H HEMOGLOBIN (test code = HGB) 17.0 G/DL 14.0-18.0 N HEMATOCRIT (test code = HCT) 51.8 % 37.0-49.0 H MEAN CELL VOLUME (test code = 80 fL 80-94 N MCV) MEAN CELL HGB (test code = MCH) 26.4 PGM 27-31 L MEAN CELL HGB CONCENTRATION (test 32.8 G/DL 33-37 L code = MCHC) RED CELL DISTRIBUTION WIDTH (test 13.2 % 11.6-16.2 N code = RDW) PLATELET COUNT (test code = PLT) 298 K/mm3 130-400 N MEAN PLATELET VOLUME (test code = 10.5 fl 7.4-10.4 H MPV) NEUTROPHIL % (test code = NT%) 73.8 % 43-65 H IMMATURE GRANULOCYTE % (test code 0.8 % 0.0-2.0 N = IG%) LYMPHOCYTE % (test code = LY%) 12.0 % 20.5-45.5 L MONOCYTE % (test code = MO%) 12.7 % 5.5-11.7 H EOSINOPHIL % (test code = EO%) 0.4 % 0.9-2.9 L BASOPHIL % (test code = BA%) 0.3 % 0.2-1.0 N NUCLEATED RBC % (test code = 0.0 % 0-1.0 N NRBC%) NEUTROPHIL # (test code = NT#) 12.79 K/mm3 2.2-4.8 H LYMPHOCYTE # (test code = LY#) 2.07 K/mm3 1.3-2.9 N MONOCYTE # (test code = MO#) 2.19 K/mm3 0.3-0.8 H EOSINOPHIL # (test code = EO#) 0.07 K/MM3 0.0-0.2 N BASOPHIL # (test code = BA#) 0.06 K/mm3 0.0-0.1 N URINALYSIS [id number] 10:29:00 Test Item Value Reference Range Interpretation Comments UA COLOR (test code = COLU) DARK YELLOW YELLOW UA APPEARANCE (test code = CLEAR CLEAR APPU) UA GLUCOSE DIPSTICK (test code NEGATIVE MG/AL NEGATIVE = DGLUU) UA BILIRUBIN DIPSTICK (test NEGATIVE NEGATIVE code = BILU) UA KETONE DIPSTICK (test code NEGATIVE MG/DL NEGATIVE = KETU) UA SPECIFIC GRAVITY (test code 1.025 1.000-1.030 = SGU) UA BLOOD DIPSTICK (test code = NEGATIVE NEGATIVE GUERO) UA PH DIPSTICK (test code = 7.0 4.5-8.5 HALEY) UA PROTEIN DIPSTICK (test code TRACE NEGATIVE A = PROU) UA UROBILINOGEN DIPSTICK (test 1.0 EU/dL <=1.0 code = URO) UA NITRITE DIPSTICK (test code NEGATIVE NEGATIVE = THEO) UA LEUKOCYTE ESTERASE DIPSTICK NEGATIVE NEGATIVE (test code = LEUU) UA WBC (test code = WBCU) /HPF 0-3 UA RBC (test code = RBCU) /HPF 0-3 UA EPITHELIAL CELLS (test code /LPF NONE-FEW = EPIU) UA BACTERIA (test code = BACU) /HPF NEGATIVE CREATININE [id number] 10:18:00 Test Item Value Reference Range Interpretation Comments CREATININE POC (test code = 1.20 mg/dL 0.6-1.3 N CREATP)
[2020-11-15 07:05] LABS: Absolute Lymphocytes (CBC) 1.4 K/uL (0.7-4.9); Basophils % 0.9 % (0-1.3); Hematocrit 45.6 % (39.6-49.0); Lymphocytes % 22.9 % (15.3-44.8); MPV 9.2 fL (7.6-11.3); Protime INR 0.98; RBC Red Blood Cell Count 5.85 M/uL (4.33-5.43)
[2020-11-15] MEDS ORDERED: ASPIRIN 81 MG CHEWABLE TABLET ONE ×2 (07:09→07:28)
[2020-11-15 07:11] LABS: Urine Blood Negative (Negative); Urine Glucose Negative (Negative); Urine Protein Negative (Negative); Urine pH 6.5 (5.0-7.0)
[2020-11-15 07:16] LABS: ALT/SGPT 31 U/L (12-78); AST/SGOT 18 U/L (15-37); Albumin 3.7 g/dL (3.4-5.0); Alkaline Phosphatase 68 U/L (45-117); BUN Blood Urea Nitrogen 17 mg/dL (7-18); Bicarbonate 26 mmol/L (21-32); Bilirubin Direct 0.1 mg/dL (0-0.2); Bilirubin Total 0.6 mg/dL (0.2-1.0); Glucose Level 106 mg/dL (74-106); Magnesium 2.3 mg/dL (1.8-2.4); NT PRO-BNP 34 pg/mL (<125); Potassium 3.7 mmol/L (3.5-5.1); Protein, Total 7.2 g/dL (6.4-8.2); Sodium Level 140 mmol/L (136-145); Troponin (Emerg Dept Use Only) < 0.02 ng/mL (0.0-0.045)
--- NOTE | 2020-11-15 07:25 | ER ---
Nurse's Notes [facility] Name: Skyler Jeffers Age: 40 yrs Sex: Male : 1980 Arrival Date: 11/15/2020 Time: 06:28 Bed 20 Private MD: Diagnosis: Chest pain, unspecified;Dyspnea Presentation: 11/15 06:30 Chief complaint: Patient states: was having some chest tightness and was coughing up a iw lot of mucous then he saw some streaks of blood in it, took his BP and it was high, also vomited once. Coronavirus screen: At this time, the client does not indicate any symptoms associated with coronavirus-19. Ebola Screen: Patient negative for fever greater than or equal to 101.5 degrees Fahrenheit, and additional compatible Ebola Virus Disease symptoms Patient denies exposure to infectious person. Patient denies travel to an Ebola-affected area in the 21 days before illness onset. No symptoms or risks identified at this time. Initial Sepsis Screen: Does the patient meet any 2 criteria? No. Patient's initial sepsis screen is negative. Does the patient have a suspected source of infection? No. Patient's initial sepsis screen is negative. Risk Assessment: Do you want to hurt yourself or someone else? Patient reports no desire to harm self or others. Onset of symptoms was November 15, 2020. 06:30 Method Of Arrival: EMS: [facility] iw 06:30 Acuity: ARY 3 iw Triage Assessment: 08:44 General: Appears in no apparent distress. Behavior is calm, cooperative, appropriate kg for age, quiet. Pain: Complains of pain in chest and abdomen Pain does not radiate. Pain currently is 8 out of 10 on a pain scale. at worst was 10 out of 10 on a pain scale. level that patient reports is acceptable is 6 out of 10 on a pain scale. Quality of pain is described as sharp, stabbing, Is intermittent. EENT: No deficits noted. Neuro: No deficits noted. Cardiovascular: Reports chest pain, shortness of breath, Heart tones S1 S2 Capillary refill < 3 seconds Rhythm is regular. Respiratory: Reports shortness of breath Airway is patent Breath sounds are clear bilaterally. GI: No deficits noted. : No deficits noted. Derm: No deficits noted. Musculoskeletal: No deficits noted. Historical: - Allergies: 06:33 Morphine; iw - Home Meds: 06:33 metoprolol succinate 25 mg oral Tb24 1 tab once daily [Active]; Zyprexa Oral once daily iw [Active]; Zoloft 25 mg Oral tab 1 tab once daily [Active]; - PMHx: 06:33 Hypertension; iw - PSHx: 06:33 renata in right femur; Hernia repair; iw - Immunization history:: Adult Immunizations not up to date. - Social history:: Smoking status: Patient denies any tobacco usage or history of. Screenin:01 Abuse screen: Denies threats or abuse. Denies injuries from another. Nutritional iw screening: No deficits noted. Tuberculosis screening: No symptoms or risk factors identified. Fall Risk IV access (20 points). Assessment: 08:45 General: Appears in no apparent distress. Behavior is calm, cooperative, appropriate kg for age, quiet. Pain: Complains of pain in chest and abdomen Pain does not radiate. Pain currently is 8 out of 10 on a pain scale. at worst was 10 out of 10 on a pain scale. level that patient reports is acceptable is 6 out of 10 on a pain scale. Quality of pain is described as aching, sharp, stabbing, Pressure Pain began 1 day ago. Neuro: No deficits noted. Cardiovascular: No deficits noted. Cardiovascular: Reports chest pain, shortness of breath, Heart tones S1 S2 Capillary refill < 3 seconds Pulses are all present. Rhythm is regular. Respiratory: No deficits noted. Respiratory: Reports shortness of breath at rest on exertion Airway is patent Breath sounds are clear bilaterally. GI: No deficits noted. : No deficits noted. EENT: No deficits noted. Vital Signs: 06:30 BP 119 / 81; Pulse 82; Resp 16; Temp 97.9; Pulse Ox 97% on R/A; Weight 81.65 kg; Height iw 5 ft. 5 in. (165.10 cm); Pain 4/10; 07:00 BP 107 / 73; Pulse 80; Resp 16; Pulse Ox 98% on R/A; iw 08:00 BP 121 / 98; Pulse 73; Resp 19; Pulse Ox 96% on R/A; kg 09:00 BP 136 / 90; Pulse 68; Resp 20; Pulse Ox 98% on R/A; kg 10:00 BP 118 / 78; Pulse 90; Resp 20; Pulse Ox 97% on R/A; kg 11:00 BP 124 / 84; Pulse 98; Resp 20; Pulse Ox 98% on R/A; kg 12:00 BP 116 / 85; Pulse 70; Resp 20; Pulse Ox 96% on R/A; kg 13:00 BP 128 / 84; Pulse 70; Resp 18; Pulse Ox 98% on R/A; kg 06:30 Body Mass Index 29.95 (81.65 kg, 165.10 cm) iw ED Course: 06:28 Patient arrived in ED. iw 06:31 Mark Malin MD is Attending Physician. clark 06:32 Triage completed. iw 06:33 Arm band placed on. iw 06:56 XRAY Chest (1 view) In Process Unspecified. EDMS 07:00 Beba Jenkins is Primary Nurse. kg 07:00 Initial lab(s) drawn, by me, sent to lab. Maintain EMS IV. Dressing intact. Good blood iw return noted. Site clean \T\ dry. Gauge \T\ site: 20 RAC. Inserted saline lock: 20 gauge in left antecubital area, using aseptic technique. Blood collected. 07:24 Deon Nieves MD is Hospitalizing Provider. clark 08:00 campus monitor on. Pulse ox on. NIBP on. kg 08:53 Troponin (emerg Dept Use Only) Sent. kg 09:25 IV discontinued, intact, bleeding controlled, No redness/swelling at site. Pressure kg dressing applied, Right AC IV D/C'd. Unable to flush. 13:10 Report given to Ernestina ANDERSONwasher and capper machine operator. kg 13:43 No provider procedures requiring assistance completed. Patient maintains SpO2 kg saturation greater than 95% on room air. 13:44 Patient has correct armband on for positive identification. kg Administered Medications: 06:49 Not Given (Physician Discretion): Lopressor (metoprolol TARTRATE)) 25 mg PO once iw 06:55 Drug: Aspirin Chewable Tablet 324 mg Route: PO; iw 08:42 Follow up: Response: No adverse reaction kg 07:42 Drug: Pepcid (famotidine) 20 mg Route: IVP; Site: left antecubital; kg 08:42 Follow up: Response: No adverse reaction kg 07:48 Not Given (Patient Refused): Lovenox (enoxaparin) 1 mg/kg Sub-Q once kg Outcome: 07:25 Decision to Hospitalize by Provider. clark 13:44 Admitted to Med/surg accompanied by tech, via wheelchair, room 215, with chart, Report kg called to Oksana RN 13:44 Condition: stable 13:44 Instructed on the need for admit, Demonstrated understanding of instructions. 13:45 Patient left the ED. kg Signatures: Dispatcher [employer] Mark Lara MD MD cha Williams, Irene RN RN Beba Bazzi kg
--- NOTE | 2020-11-15 07:25 | EDPHYS ---
Physician Documentation [facility] Name: Skyler Jeffers Age: 40 yrs Sex: Male : 1980 Arrival Date: 11/15/2020 Time: 06:28 Bed 20 Private MD: ED Physician Mark Malin HPI: 11/15 07:19 This 40 yrs old Male presents to ER via EMS with complaints of Chest Pain, clark High Blood Pressure. 07:19 The patient or guardian reports chest pain that is located primarily in the anterior clark chest wall, bilaterally. The pain does not radiate. Associated signs and symptoms: The patient has no apparent associated signs or symptoms. The chest pain is described as a pressure, squeezing. Duration: The patient or guardian reports a single episode, that is still ongoing. Modifying factors: The symptoms are alleviated by nothing. the symptoms are aggravated by nothing. Severity of pain: At its worst the pain was moderate in the emergency department the pain has improved mildly. The patient has experienced similar episodes in the past, several times. Historical: - Allergies: 06:33 Morphine; iw - Home Meds: 06:33 metoprolol succinate 25 mg oral Tb24 1 tab once daily [Active]; Zyprexa Oral once daily iw [Active]; Zoloft 25 mg Oral tab 1 tab once daily [Active]; - PMHx: 06:33 Hypertension; iw - PSHx: 06:33 renata in right femur; Hernia repair; iw - Immunization history:: Adult Immunizations not up to date. - Social history:: Smoking status: Patient denies any tobacco usage or history of. ROS: 07:20 Constitutional: Negative for fever, chills, and weight loss, Eyes: Negative for injury, clark pain, redness, and discharge, ENT: Negative for injury, pain, and discharge, Neck: Negative for injury, pain, and swelling, Abdomen/GI: Negative for abdominal pain, nausea, vomiting, diarrhea, and constipation, Back: Negative for injury and pain, : Negative for injury, bleeding, discharge, and swelling, MS/Extremity: Negative for injury and deformity, Skin: Negative for injury, rash, and discoloration, Neuro: Negative for headache, weakness, numbness, tingling, and seizure, Psych: Negative for depression, anxiety, suicide ideation, homicidal ideation, and hallucinations, Allergy/Immunology: Negative for hives, rash, and allergies, Endocrine: Negative for neck swelling, polydipsia, polyuria, polyphagia, and marked weight changes, Hematologic/Lymphatic: Negative for swollen nodes, abnormal bleeding, and unusual bruising. 07:20 Cardiovascular: Positive for chest pain, of the chest. 07:20 Respiratory: Positive for cough. Exam: 07:20 Constitutional: This is a well developed, well nourished patient who is awake, alert, clark and in no acute distress. Head/Face: Normocephalic, atraumatic. Eyes: Pupils equal round and reactive to light, extra-ocular motions intact. Lids and lashes normal. Conjunctiva and sclera are non-icteric and not injected. Cornea within normal limits. Periorbital areas with no swelling, redness, or edema. ENT: Nares patent. No nasal discharge, no septal abnormalities noted. Tympanic membranes are normal and external auditory canals are clear. Oropharynx with no redness, swelling, or masses, exudates, or evidence of obstruction, uvula midline. Mucous membranes moist. Neck: Trachea midline, no thyromegaly or masses palpated, and no cervical lymphadenopathy. Supple, full range of motion without nuchal rigidity, or vertebral point tenderness. No Meningismus. Chest/axilla: Normal chest wall appearance and motion. Nontender with no deformity. No lesions are appreciated. Cardiovascular: Regular rate and rhythm with a normal S1 and S2. No gallops, murmurs, or rubs. Normal PMI, no JVD. No pulse deficits. Respiratory: Lungs have equal breath sounds bilaterally, clear to auscultation and percussion. No rales, rhonchi or wheezes noted. No increased work of breathing, no retractions or nasal flaring. Abdomen/GI: Soft, non-tender, with normal bowel sounds. No distension or tympany. No guarding or rebound. No evidence of tenderness throughout. Back: No spinal tenderness. No costovertebral tenderness. Full range of motion. Male : Normal genitalia with no discharge or lesions. Skin: Warm, dry with normal turgor. Normal color with no rashes, no lesions, and no evidence of cellulitis. MS/ Extremity: Pulses equal, no cyanosis. Neurovascular intact. Full, normal range of motion. Neuro: Awake and alert, GCS 15, oriented to person, place, time, and situation. Cranial nerves II-XII grossly intact. Motor strength 5/5 in all extremities. Sensory grossly intact. Cerebellar exam normal. Normal gait. Psych: Awake, alert, with orientation to person, place and time. Behavior, mood, and affect are within normal limits. 07:20 Musculoskeletal/extremity: DVT Exam: No signs of deep vein thrombosis. no pain, no swelling, no tenderness, negative Homans' sign noted on exam, no appreciated bluish discoloration, no erythema, no increased warmth. 07:25 ECG was reviewed by the Attending Physician. clark Vital Signs: 06:30 BP 119 / 81; Pulse 82; Resp 16; Temp 97.9; Pulse Ox 97% on R/A; Weight 81.65 kg; Height iw 5 ft. 5 in. (165.10 cm); Pain 4/10; 07:00 BP 107 / 73; Pulse 80; Resp 16; Pulse Ox 98% on R/A; iw 08:00 BP 121 / 98; Pulse 73; Resp 19; Pulse Ox 96% on R/A; kg 09:00 BP 136 / 90; Pulse 68; Resp 20; Pulse Ox 98% on R/A; kg 10:00 BP 118 / 78; Pulse 90; Resp 20; Pulse Ox 97% on R/A; kg 11:00 BP 124 / 84; Pulse 98; Resp 20; Pulse Ox 98% on R/A; kg 12:00 BP 116 / 85; Pulse 70; Resp 20; Pulse Ox 96% on R/A; kg 13:00 BP 128 / 84; Pulse 70; Resp 18; Pulse Ox 98% on R/A; kg 06:30 Body Mass Index 29.95 (81.65 kg, 165.10 cm) iw MDM: 06:31 Patient medically screened. clark 07:21 Differential diagnosis: abnormal EKG, acute myocardial infarction, gastritis, hiatal clark hernia, pancreatitis, pleurisy, pneumothorax, pulmonary embolus, stable angina, unstable angina. HEART Score: History: Moderately Suspicious (1), ECG: Normal (0), Age: < or = 45 years (0), Risk Factors: No Risk Factors Known (0), Troponin: < or = 1 x Normal Limit (0). The patient's deep vein thrombosis risk score was calculated as follows: Total Score: 0. This patient was found to be at low risk for a deep vein thrombosis by using the Well's assessment criteria. The patient's pulmonary embolism risk score was calculated as follows: Total Score: 0-2 points. This patient was found to be at low risk for a pulmonary embolism by using the Well's assessment criteria. LUDIVINA Risk Score: TOTAL SCORE = 0. Data reviewed: vital signs, nurses notes, lab test result(s), EKG, radiologic studies, plain films. Data interpreted: site monitor: rate is 80 beats/min, rhythm is regular, Pulse oximetry: on room air is 98 %. Test interpretation: by ED physician or midlevel provider: ECG, plain radiologic studies. Counseling: I had a detailed discussion with the patient and/or guardian regarding: the historical points, exam findings, and any diagnostic results supporting the discharge/admit diagnosis, lab results, radiology results, the need for further work-up and treatment in the hospital. 11/15 06:37 Order name: Basic Metabolic Panel [facility] 11/15 06:37 Order name: CBC with Diff; Complete Time: 07:19 [facility] 11/15 06:37 Order name: LFT's; Complete Time: 07:19 [facility] 11/15 06:37 Order name: Magnesium; Complete Time: 07:19 [facility] 11/15 06:37 Order name: NT PRO-BNP; Complete Time: 07:19 [facility] 11/15 06:37 Order name: PT-INR; Complete Time: 07:19 [facility] 11/15 06:37 Order name: Troponin (emerg Dept Use Only); Complete Time: 07:19 [facility] 11/15 06:37 Order name: UDS [facility] 11/15 06:37 Order name: Basic Metabolic Panel; Complete Time: 07:19 [facility] 11/15 07:10 Order name: Urine Dipstick-Ancillary; Complete Time: 07:19 [facility] 11/15 08:16 Order name: Troponin (emerg Dept Use Only) em1 11/15 13:04 Order name: T4 Free [facility] 11/15 13:04 Order name: Thyroid Stimulating Hormone [facility] 11/15 06:37 Order name: XRAY Chest (1 view) [facility] 11/15 06:37 Order name: EKG; Complete Time: 06:38 [facility] 11/15 06:37 Order name: Cardiac monitoring; Complete Time: 06:59 [facility] 11/15 06:37 Order name: EKG - Nurse/Tech; Complete Time: 07:00 [facility] 11/15 06:37 Order name: IV Saline Lock; Complete Time: 07:00 [facility] 11/15 06:37 Order name: Labs collected and sent; Complete Time: 07:00 [facility] 11/15 06:37 Order name: O2 Per Protocol; Complete Time: 07:00 [facility] 11/15 06:37 Order name: O2 Sat Monitoring; Complete Time: 07:00 [facility] 11/15 13:21 Order name: SARS-COV-2 RT PCR EDMS EC:25 Rate is 77 beats/min. QRS [place] is Normal. NM interval is normal. QRS interval is clark normal. QT interval is normal. No Q waves. T waves are Normal. No ST changes noted. Clinical impression: NSR w/ Non-specific ST/T Changes and No evidence of ischemia. Interpreted by me. Reviewed by me. Administered Medications: 06:49 Not Given (Physician Discretion): Lopressor (metoprolol TARTRATE)) 25 mg PO once iw 06:55 Drug: Aspirin Chewable Tablet 324 mg Route: PO; iw 08:42 Follow up: Response: No adverse reaction kg 07:42 Drug: Pepcid (famotidine) 20 mg Route: IVP; Site: left antecubital; kg 08:42 Follow up: Response: No adverse reaction kg 07:48 Not Given (Patient Refused): Lovenox (enoxaparin) 1 mg/kg Sub-Q once kg Disposition: 11/15/20 07:25 Hospitalization ordered by Deon Nieves for Observation. Preliminary diagnosis are Chest pain, unspecified, Dyspnea. - Bed requested for Telemetry/MedSurg (observation). - Status is Observation. kg - Condition is Stable. - Problem is new. - Symptoms have improved. Signatures: Dispatcher [employer] EDMS Mark Malin MD MD cha Williams, Irene, RN RN Joseph Yoon em1 Beba Jenkins kg Corrections: (The following items were deleted from the chart) 08:40 06:38 CORONAVIRUS+LAB.SOFIAZ ordered. EDTN EDMS 11:39 07:25 Hospitalization Ordered by Deon Nieves MD for Observation. Preliminary em1 diagnosis is Chest pain, unspecified; Dyspnea. Bed requested for Telemetry/MedSurg (observation). Status is Observation. Condition is Stable. Problem is new. Symptoms have improved. clark 13:45 11:39 11/15/2020 07:25 Hospitalization Ordered by Deon Nieves MD for Observation. kg Preliminary diagnosis is Chest pain, unspecified; Dyspnea. Bed requested for Telemetry/MedSurg (observation). Status is Observation. Condition is Stable. Problem is new. Symptoms have improved. em1
[2020-11-15 07:37] LABS: Barbiturates NEGATIVE (NEGATIVE); Benzodiazepines NEGATIVE (NEGATIVE); Cocaine NEGATIVE (NEGATIVE); METHAMPHETAM NEGATIVE (NEGATIVE); Methadone NEGATIVE (NEGATIVE); Opiates NEGATIVE (NEGATIVE); Phencyclidine NEGATIVE (NEGATIVE); THC Cannibis NEGATIVE (NEGATIVE)
[2020-11-15] MEDS ORDERED: FAMOTIDINE 20 MG/2 ML VIAL IV ONE (08:03)
[2020-11-15] MEDS ORDERED: ENOXAPARIN 80 MG/0.8 ML SQ ONE (08:03)
--- NOTE | 2020-11-15 09:31 | RAD REPORT ---
EXAM DESCRIPTION: RAD - Chest Single View - 11/15/2020 6:57 am CLINICAL HISTORY: CHEST PAIN COMPARISON: None TECHNIQUE: AP portable chest image was obtained 11/15/2020 6:57 am . FINDINGS: Lungs are clear. Slight fullness left hilum not outside the range of normal. Heart and vas culature are normal. No measurable pleural effusion and no pneumothorax. No acute bony abnormality se en. No acute aortic findings suspected. IMPRESSION: No acute cardiopulmonary process.
[2020-11-15] MEDS ORDERED: ACETAMINOPHEN 500 MG TAB PO PRN (11:16)
[2020-11-15] MEDS ORDERED: ALBUTEROL 2.5 MG/3 ML NEB SOL NEB PRN (11:16)
[2020-11-15] MEDS ORDERED: ONDANSETRON 4 MG/2 ML VIAL IV PRN (11:16)
[2020-11-15] MEDS ORDERED: HYDROCODONE/APAP 5/325 MG TAB PO PRN (11:24)
--- NOTE | 2020-11-15 11:36 | P.HP ---
Certification for Inpatient Patient admitted to: Observation With expected LOS: <2 Midnights Patient will require the following post-hospital care: None Practitioner: I am a practitioner with admitting privileges, knowledge of patient current condition, hospital course, and medical plan of care. Services: Services provided to patient in accordance with Admission requirements found in Title 42 Section 412.3 of the Code of Federal Regulations <EugeneDominicklizzyamena Schulz Last Filed: 11/15/20 15:22> Patient admitted to: Observation With expected LOS: <2 Midnights <Marlon Soand - Last Filed: 11/15/20 15:45> Patient History Date of Service: 11/15/20 Reason for admission: Chest pain History of Present Illness: Patient is a 40 year old male with a past medical history significant for hypertension who presents with complaint of chest pain onset this morning. Patient reported that he initially started having nausea and vomiting before he started having chest pain. Patient reported that chest pain is located in the substernal chest area. Patient rated pain as a 6\10 in severity and described pain as sharp\squeezing in quality. Patient denies any other signs and symptoms. Symptoms are aggravated or relieved by nothing. Patient decided to present to the ER due to worsening symptoms. Home medications list reviewed: Yes - Social History Smoking Status: Unknown if ever smoked Alcohol use: No CD- Drugs: No <Azul Knight Jazz Last Filed: 11/15/20 15:22> Date of Service: 11/15/20 Primary Care Provider: Dr. Wick - Past Medical/Surgical History -: HTN -: Depression -: PTSD Past Surgical History: Reviewed- Non-Contributory Psychosocial/ Personal History: Patient is going through a divorce - Family History Father -: Heart disease, Hypertension Mother -: Heart disease, Hypertension - Social History Smoking Status: Never smoker Alcohol use: Yes CD- Drugs: No Caffeine use: Yes Place of Residence: Home <Earl So - Last Filed: 11/15/20 15:45> Allergies morphine Allergy (Verified 11/15/20 12:16) Nausea/Vomiting Review of Systems General: Unremarkable Eyes: Unremarkable ENT: Unremarkable Respiratory: Cough, Shortness of Breath Cardiovascular: Chest Pain Gastrointestinal: Nausea, Vomiting Genitourinary: Unremarkable Musculoskeletal: Unremarkable Integumentary: Unremarkable Neurological: Unremarkable <Azul Knight - Last Filed: 11/15/20 15:22> Physical Examination - Physical Exam General: Alert, In no apparent distress, Oriented x3 HEENT: Atraumatic, PERRLA, Mucous membr. moist/pink, EOMI, Sclerae nonicteric Neck: Supple, 2+ carotid pulse no bruit, No LAD, Without JVD or thyroid abnormality Respiratory: Clear to auscultation bilaterally, Normal air movement Cardiovascular: No edema, Normal pulses, Regular rate/rhythm, Normal S1 S2 Capillary refill: Brisk Gastrointestinal: Normal bowel sounds, Non-distended, No tenderness Musculoskeletal: No clubbing, No tenderness Integumentary: No rashes, No significant lesion, No tenderness/swelling Neurological: Normal gait, Normal speech, Normal strength at 5/5 x4 extr, Normal tone, Normal affect Lymphatics: No axilla or inguinal lymphadenopathy External genitalia: Deferred Rectal: Deferred - Studies Laboratory Data (last 24 hrs) 11/15/20 06:45: PT 11.3, INR 0.98 11/15/20 06:45: WBC 6.10, Hgb 15.6, Hct 45.6, Plt Count 245 11/15/20 06:45: Sodium 140, Potassium 3.7, BUN 17, Creatinine 0.96, Glucose 106, Magnesium 2.3, Total Bilirubin 0.6, AST 18, ALT 31, Alkaline Phosphatase 68 <Azul Knight - Last Filed: 11/15/20 15:22> - Studies Laboratory Data (last 24 hrs) 11/15/20 06:45: PT 11.3, INR 0.98 11/15/20 06:45: WBC 6.10, Hgb 15.6, Hct 45.6, Plt Count 245 11/15/20 06:45: Sodium 140, Potassium 3.7, BUN 17, Creatinine 0.96, Glucose 106, Magnesium 2.3, Total Bilirubin 0.6, AST 18, ALT 31, Alkaline Phosphatase 68 <Earl So - Last Filed: 11/15/20 15:45> Assessment and Plan - Plan --Chest pain of unclear etiology. Will trend troponinnegative so far. Echocardiogram pending. Principal Architect consulted. Telemetry. Will await further recommendations from service vehicle operator. --Hypertension. Stable. Continue home medications --Depression. Continue home medications. --Nausea and Vomiting. Antiemetics on board. --CKD 2. Baseline functions unknown. Will continue to monitor renal functions --DVT prophylaxis with Lovenox subQ Discharge Plan: Home Plan to discharge in: 48 Hours - Advance Directives Does patient have a Living Will: No Does patient have a Durable POA for Healthcare: No - Code Status/Comfort Care Code Status Assessed: Yes Code Status: Full Code Critical Care: No <Azul Knight - Last Filed: 11/15/20 15:22> - Plan Agree with plan. Please see Dc summary for details Time Spent Managing Pts Care (In Minutes): 55 <Earl So - Last Filed: 11/15/20 15:45>
[2020-11-15] MEDS ORDERED: ENOXAPARIN 40 MG/0.4 ML SQ SCH (12:00)
[2020-11-15 12:29] VITALS: BMI 29.9
[2020-11-15 13:04] LABS: Thyroid Stimulating Hormone 1.79 uIU/mL (0.360-3.740)
[2020-11-15 14:14] VITALS: O2SAT 98
[2020-11-15 15:00] VITALS: BP 124/81; TEMP 97.6
--- NOTE | 2020-11-15 15:42 | P.DS ---
Admission Date: 11/15/20 Discharge Date: 11/15/20 Primary Care Provider: Dr. Camacho Disposition: ROUTINE DISCHARGE Discharge Condition: GOOD Reason for Admission: Chest pain Consultations: Cardiology-Dr. Kelly Procedures: COVID: Negative CXR: FINDINGS: Lungs are clear. Slight fullness left hilum not outside the range of normal. Heart and vasculature are normal. No measurable pleural effusion and no pneumothorax. No acute bony abnormality seen. No acute aortic findings suspected. IMPRESSION: No acute cardiopulmonary process. Medical Problem List: Chest pain, atypical Hypertension Bipolar disorder Obesity, BMI 30 Brief History of Present Illness: 40-year-old male with history of hypertension, bipolar disorder and PTSD. Patient presented with chest pain. Chest pain was mainly to the substernal region. He did not have any significant shortness of breath, nausea and vomiting. Patient is seen by Cardiology as an outpatient. Patient mentions that he had a cardiac stress test done within the past 6 months at [facility]. Cardiac stress test was unremarkable. He also reports that his medication was recently adjusted-Toprol. He has some occasional dizziness with Toprol XL. Initial cardiac enzymes unremarkable. COVID test negative. Chest x-ray unremarkable. The patient was admitted for further evaluation and treatment. Hospital Course: Patient was seen and evaluated for atypical chest pain. Patient had cardiac enzymes x3 negative. Chest x-ray unremarkable. COVID 19 test negative. Chest x-ray unremarkable. The patient was admitted for observation. Patient was seen and evaluated by Cardiology. Patient was to stay Overnite for further evaluation. Patient desires to leave at this time. Patient reports having cardiac stress test as an outpatient at [facility]. This was unremarkable. This is done about 6 months ago. No further chest pain noted. Patient reports increased stress at home. Patient has history of PTSD and bipolar disorder. Patient will be discharged home. But will change his blood pressure medication from Toprol-XL 25 mg daily to metoprolol tartrate 25 mg daily as the patient reports some fluctuations with his blood pressure. Recommend to monitor blood pressure daily. Recommend to maintain blood pressure less than 130/80. If blood pressure remains above 140 consistently then he is to follow up with his compliance technician or PCP to further address. Lifestyle modification education provided. Patient will follow up with his PCP within 1 week to follow up this hospitalization. Patient plans to follow up with local cardiology to follow up this hospitalization as well. If chest pain persists patient may require heart catheterization as an outpatient to further address. Patient agrees with plan of care. Will also recommend for patient to start aspirin 81 mg daily. Will recommend to have PCP evaluate fasting lipid panel in the near future to further address. Patient with history of bipolar disorder and PTSD. At discharge patient will continue with his medications including Zyprexa and Zoloft. Recommend follow up with his PCP or psychiatry to further address. Vital Signs/Physical Exam: Temp Pulse Resp BP Pulse Ox 97.6 F 71 18 124/81 95 11/15/20 14:30 11/15/20 14:30 11/15/20 14:30 11/15/20 14:30 11/15/20 14:30 General: Alert, In no apparent distress, Oriented x3, Cooperative HEENT: Atraumatic Neck: Supple Respiratory: Clear to auscultation bilaterally, Normal air movement Cardiovascular: Normal pulses, Regular rate/rhythm Gastrointestinal: Normal bowel sounds, Soft and benign, Non-distended, No tenderness, No masses, No rebound, No guarding Musculoskeletal: No erythema, No tenderness, No warmth Integumentary: No tenderness/swelling, No erythema, No warmth, No cyanosis Neurological: Normal speech, Normal strength at 5/5 x4 extr, Normal tone, Normal affect Laboratory Data at Discharge: WBC 6.10 K/uL (4.3-10.9) 11/15/20 06:45 Hgb 15.6 g/dL (13.6-17.9) 11/15/20 06:45 Hct 45.6 % (39.6-49.0) 11/15/20 06:45 Plt Count 245 K/uL (152-406) 11/15/20 06:45 PT 11.3 SECONDS (9.5-12.5) 11/15/20 06:45 INR 0.98 11/15/20 06:45 Sodium 140 mmol/L (136-145) 11/15/20 06:45 Potassium 3.7 mmol/L (3.5-5.1) 11/15/20 06:45 BUN 17 mg/dL (7-18) 11/15/20 06:45 Creatinine 0.96 mg/dL (0.55-1.3) 11/15/20 06:45 Glucose 106 mg/dL (74-106) 11/15/20 06:45 Magnesium 2.3 mg/dL (1.8-2.4) 11/15/20 06:45 Total Bilirubin 0.6 mg/dL (0.2-1.0) 11/15/20 06:45 AST 18 U/L (15-37) 11/15/20 06:45 ALT 31 U/L (12-78) 11/15/20 06:45 Alkaline Phosphatase 68 U/L (45-117) 11/15/20 06:45 Troponin I < 0.02 ng/mL (0.0-0.045) 11/15/20 14:15 Home Medications: Aspirin [Aspirin EC 81 MG] 81 mg PO DAILY #30 tablet. 11/15/20 Metoprolol Tartrate 25 mg PO DAILY #30 tablet 11/15/20 Olanzapine [Zyprexa] 2.5 mg PO DAILY 11/15/20 Sertraline [Zoloft*] 25 mg PO DAILY 11/15/20 New Medications: Aspirin [Aspirin EC 81 MG] 81 mg PO DAILY #30 tablet. Metoprolol Tartrate 25 mg PO DAILY #30 tablet Physician Discharge Instructions: Patient was seen and evaluated for atypical chest pain. Patient had cardiac enzymes x3 negative. Chest x-ray unremarkable. COVID 19 test negative. Chest x-ray unremarkable. The patient was admitted for observation. Patient was seen and evaluated by Cardiology. Patient was to stay Overnite for further evaluation. Patient desires to leave at this time. Patient reports having cardiac stress test as an outpatient at [facility] [employer]. This was unremarkable. This is done about 6 months ago. No further chest pain noted. Patient reports increased stress at home. Patient has history of PTSD and bipolar disorder. Patient will be discharged home. But will change his blood pressure medication from Toprol-XL 25 mg daily to metoprolol tartrate 25 mg daily as the patient reports some fluctuations with his blood pressure. Recommend to monitor blood pressure daily. Recommend to maintain blood pressure less than 130/80. If blood pressure remains above 140 consistently then he is to follow up with his compliance technician or PCP to further address. Lifestyle modification education provided. Patient will follow up with his PCP within 1 week to follow up this hospitalization. Patient plans to follow up with local cardiology to follow up this hospitalization as well. If chest pain persists patient may require heart catheterization as an outpatient to further address. Patient agrees with plan of care. Will also recommend for patient to start aspirin 81 mg daily. Will recommend to have PCP evaluate fasting lipid panel in the near future to further address. Patient with history of bipolar disorder and PTSD. At discharge patient will continue with his medications including Zyprexa and Zoloft. Recommend follow up with his PCP or psychiatry to further address. Diet: AHA Activity: Ad isael Followup: NONE,NONE [Primary Care Provider] - Time spent managing pt's care (in minutes): 55
--- NOTE | 2020-11-15 18:58 | CON ---
Date of Consultation: 11/15/2020 Reason For Consultation: Chest pain. History Of Present Illness: A 40-year-old male with history of hypertension and obesity, presented w ith chest pain. He claimed that his problem started with cough and sputum production and even some b lood-tinged sputum production along with some shortness of breath and low-grade fever, chest tightnes s as well. He took inhaler without good health, so he presented to the emergency room. He is not kn own to have any history of cardiac disease. Past Medical History: Hypertension. Medications: Refer to reconciliation sheet for detailed list. Allergies: MORPHINE. Social History: He does not smoke or drink. Does not use any drugs. Family History: No premature coronary artery disease or cancer. Review of Systems: All systems reviewed and they were negative except for what is mentioned in HPI. Physical Examination: Vital Signs: Temperature is 97.6, pulse 71, breathing at 18, blood pressure 124/81, saturating 95% o n room air. General: This is a young male, obese, in no apparent distress. Head and Neck: Pupils are equal, reactive to light. Intact eye movements. No JVD. No cervical lym phadenopathy. Neck: Supple. Thyroid is not enlarged. Lungs: Clear to auscultation bilaterally. No rhonchi, rales, or crackles. No accessory muscle use. Heart: Regular rate and rhythm. No extra sounds. Abdomen: Soft, nontender. Bowel sounds positive. No organomegaly. No masses or hernia. No rigidi ty or rebound. Extremities: No edema, clubbing, or cyanosis. Intact pulses. Skin: No rash noted. Neurologic: Alert, awake, oriented x3. No acute focal deficits appreciated. Investigations: Three sets of troponin negative. Creatinine 0.96, hemoglobin 15.6. Assessment And Recommendation: 1.Chest pain with atypical troponins negative from Cardiology standpoint. His chest pain can be wor ked up as an outpatient with an exercise stress test and echo again can be done as an outpatient. 2.Cough with questionable hemoptysis. Recommend further evaluation with a CT scan to follow. Thank you for consultation. /NUNO Voice ID: [id number] Report ID: [id number]
== END 2020-11-15 17:15 | disposition home or self-care (01) ==
LOC: ER 06:22 → ERHOLD 11:04 → 2ND 13:17
PROVIDERS: ADMIT Family Medicine; ATTEND Family Medicine
DX: R07.89 Other chest pain (principal); R05 Cough; R77.8 Other specified abnormalities of plasma proteins; Z20.822 Contact with and (suspected) exposure to COVID-19; I10 Essential (primary) hypertension; F31.9 Bipolar disorder, unspecified; E66.9 Obesity, unspecified; Z68.30 Body mass index [BMI] 30.0-30.9, adult; F43.10 Post-traumatic stress disorder, unspecified; Z68.29 Body mass index [BMI] 29.0-29.9, adult
CPT/HCPCS: 36415; 71045; 80048; 80076; 80307; 81003; 83735; 83880; 84439; 84443; 84484; 85025; 85610; 93005; 96374; 99285; G0378; J1650; U0003

== ENCOUNTER 2022-09-01 16:49 | Emergency (ER) | payer SELFPAY ==
--- OUTSIDE RECORDS SUMMARY | 2022-09-01 16:53 | XMS REPORT | Continuity of Care Document ---
:1980 Author Organization [facility] t Address [address] [facility] [place] [address] Care Team Providers Name Role Phone Asked, No Pcp Primary Care Physician Unavailable Ezekiel Wick Attending Clinician Unavailable Poncho Amezquita Attending Clinician Unavailable Rebecca Doty Attending Clinician Unavailable Nav Nation Attending Clinician Unavailable Stepan Camacho Attending Clinician Unavailable KUN MEZA Attending Clinician Unavailable Ezekiel Wick Admitting Clinician Unavailable Physician, No Primary or Family Admitting Clinician Unavaila ble Referred, Self Admitting Clinician Unavailable Payers Payer Name Policy Type Policy Number Effective Date Expiration Date S major Self Pay P [id number] 2022 00:00:00 Problems This patient has no known problems. Allergies, Adverse Reactions, Alerts Allergy Allergy Status Severity Reaction(s) Onset Inactive Treating Comm ents Source Name Type Date Date Clinician alprazol DA Active U UNKNOWN [facility] am 07-25 [place] 00:00: Health 00 are [place] morphine DA Active CT UNKNOWN [facility] 07-25 [place] 00:00: Health 00 are [place] alprazol DA Active U 2019-07 [facility] am 08-20 [place] 00:00: Healthc 00 are [place] clonazep DA Active U 2019- [facility] am 08-20 [place] 00:00: Healthc 00 are [place] alprazol DA Active U 2019- [facility] am 08-20 [place] 00:00: Healthc 00 are [place] clonazep DA Active U 2019-07 [facility] am 08-20 [place] 00:00: Healthc 00 are [place] Morphine Propensi Active Shortness Of 2019-07 Methodi ty to [facility]ath 2-04 st adverse 00:00: Hospita reaction 00 l s to drug Diazepam Propensi Active Shortness Of 2019-07 Methodi ty to [facility] 2-04 st adverse 00:00: Hospita reaction 00 l s to drug alprazol DA Active U UNKNOWN 2019-07 [facility] am 2- [place] 00:00: Healthc 00 are [place] alprazol DA Active U 2019-07 [facility] am 08-06 [place] 00:00: Healthc 00 are [place] morphine DA Active CT 2019- [facility] 1-17 [place] 00:00: Healthc 00 are [place] morphine DA Active CT UNKNOWN 2019- [facility] 1-17 [place] 00:00: Healthc 00 are [place] morphine DA Active U 2019-0 [facility] 3-08 [place] 00:00: Healthc 00 are [place] morphine DA Active U irritable 2019-0 [facility] 3-08 [place] 00:00: Healthc 00 are [place] morphine DA Active U 2018-0 [facility] 2-24 [place] 00:00: Healthc 00 are [place] morphine DA Active U IRRITABLE 2019-0 [facility] 2-24 [place] 00:00: Healthc 00 are [place] Social History Social Habit Start Date Stop Date Quantity Comments Source Tobacco use and 2020-06-05 2020-06-05 Smokeless tobacco Me [facility] exposure 00:00:00 00:00:00 non-user Hospital Alcohol intake 2020-06-05 2020-06-05 Current drinker [facility] 00:00:00 00:00:00 of alcohol Hospital (finding) Sex Assigned At [birth year] [facility] 00:00:00 00:00:00 Hospital Smoking Status Start Date Stop Date Source Tobacco smoking consumption unknown [facility] Medications Ordered Filled Start Stop Current Ordering Indication Dosage Frequency Signature Comments Components Source Medication Medication Date Date Medication? Clinician (SIG) Name Name No known 2019-07 No No known [facility] medications 2-[address] 20[facility]17: [facility] No known 2019- No No known [facility] medications 2-[address] 20:17: [facility] No known 2019- No No known [facility] medications 2-[address] 20:17: [facility] Procedures Procedure Date / Time Performed Performing Clinician [facility] luba [id number] 2020-06-12 00:00:00 NGUJO.08 [facility] [place] [id number] 2020-06-12 00:00:00 NGUJO.08 [facility] [place] [id number] 2020-06-12 00:00:00 NGUJO.08 [facility] Plan of Care Planned Activity Planned Date Details Comments Source Future Scheduled 2022-07-25 COVID-19 VACCINE Methodi [facility] Test 17:38:28 (#1) [code = COVID-19 VACCINE (#1)] Future Scheduled 2022-07-25 [facility] Test 17:38:28 screening (procedure) [code = 843567849] Future Scheduled 2022-07-25 INFLUENZA VACCINE [facility] Test 17:38:28 [code = INFLUENZA VACCINE] Future Scheduled 2022-07-25 INFLUENZA VACCINE [facility] Test 17:38:28 [code = INFLUENZA VACCINE] Future Scheduled 2022-07-25 COVID-19 VACCINE Methodi [facility] Test 17:38:28 (#1) [code = COVID-19 VACCINE (#1)] Future Scheduled 2022-07-25 [facility] Test 17:38:28 screening (procedure) [code = 106853862] Future Scheduled 2022-06-19 INFLUENZA VACCINE [facility] Test 14:53:45 [code = INFLUENZA VACCINE] Future Scheduled 2022-06-19 COVID-19 VACCINE Methodi [facility] Test 14:53:45 (#1) [code = COVID-19 VACCINE (#1)] Future Scheduled 2022-06-19 [facility] Test 14:53:45 screening (procedure) [code = 270919586] Future Scheduled 2022-06-19 INFLUENZA VACCINE [facility] Test 14:53:45 [code = INFLUENZA VACCINE] Future [facility]uled 2022-06-19 [facility] (#1) [code = COVID-19 VACCINE (#1)] Future Scheduled 2022-06-19 [facility] Test 14:53:45 screening (procedure) [code = 478577611] Encounters Start End Encounter Admission Attending Care Care Encounter Source Date/Time Date/Time Type Type Clinicians Facility Department ID 2022-06-14 Outpatient [facility] [id number] [facility] 00:24:00 [id number] [facility] 2020-07-27 Inpatient [facility] [id number] [facility] 20:41:00 23 [facility] [place] 2020-07-23 Inpatient [facility] [id number] [facility] 17:09:00 49 [facility] [place] 2020-06-19 Inpatient [facility] [id number] [facility] 21:56:00 85 [facility] are [place] 2020-06-11 Inpatient Ezekiel Pastor [facility] MAS [id number] [facility] 12:38:00 46 [facility] are [place] 2020-06-05 Inpatient [facility] [id number] [facility] 01:48:00 96 [facility] are [place] 2020-06-02 Inpatient [facility] [id number] [facility] 21:48:00 24 [facility] are [place] 2020-05-21 Inpatient [facility] [id number] [facility] 12:51:00 56 [facility] are [place] 2020-05-19 Inpatient [facility] [id number] [facility] 19:42:00 09 [facility] 2020-05-17 In[facility] [id number] [facility] 09:29:00 92 [facility] are [place] 2019-09-12 Inpatient [facility] [id number] [facility] 20:00:00 27 [facility] [place] 2019-09-08 Inpatient [facility] [id number] [facility] 09:57:00 95 [facility] are [place] 2022-07-25 2022-07-25 Emergency EM Alirio, [facility] [id number] [facility] 17:11:00 18:59:00 Poncho 00 [facility] are [place] 2022-07-19 2022-07-19 Emergency EM Doty, [facility] [id number] [facility] 10:09:00 13:39:00 Rebecca 86 [facility] are [place] 2022-06-19 2022-06-19 Emergency EM LAVINIA Nation [facility] [id number] [facility] 18:20:00 20:59:00 Nav 22 [facility] edna [facility] are [place] 2021-01-13 2021-01-13 Emergency EM Stepan CamachoNC HOLD[facility] [id number] [facility] 14:13:00 15:32:00 69 [facility] are [facility] 2020-06-05 2020-06-05 Emergency SUSANA [facility] [id number] 643 [place] 00:00:00 00:00:00 KUN [address] Results Test Description Test Time Test Comments Results Result Comments Source Coronavirus 2018 nCoV Bedside 2022-07-25 17:58:00 Test Item Value Reference Range Interpretation Comme nts Coronavirus 2018 nCoV Negative NEGATIVE THE I D NOW COVID-19 EUA HAS NOT BEEN Bedside (test code = FDA GLENDA ARED ORAPPROVED. IT HAS BEEN [id number]) AUTHORIZED BY THE FDA UNDER ANEMERGENCY USE AUTHORIZATION FOR USE BY [facility]IES AND PATIENT CARE SETTINGS. THE TEST HAS BEENAUTHORIZED ONLY FOR THE DETECTION OF NUCLEIC ACID [id number], NOT FOR ANY OTHER V IRUSES OR PATHOGENS, AND ISONLY AUTH ORIZED FOR THE DURATION OF THE DECLARATION THATCIRCUMSTANC ES EXIST JUSTIFYING THE AUTHORIZATI ON OFEMERGENCY USE OF IN VITRO DIAGNO STIC TESTS FOR DETECTIONAND/OR DIAGNOSIS OF COVID-19 UNDER SECTION 5 64(B)(1) OF [place], 21 U.S.C. 360bbb-3 (b)(1), UNLESS THE AUTHORIZATION I STERMINATED OR REVOKED SOONER.Negative results should be treated as pres umptive and, ifinconsistent with clinical signs and symptoms or necessaryfor patient managmeent, ann uld be tested with differentauthor izd or cleared molecular tests . Negative results donot preclude SARS-Cov-2 infection and should not be used asthe sole basis for patie nt management decisions. Nega tiveresults should be considered in t he context of a patient'srecent exposures, history and presence of clinical signs andsymptons con sistent with COVID-19. - XR CHEST 1 [id number] 13:06:00 [facility] 1980 Sex: MPatient Name: GARY JEFFERS Unit No: [id number] EXAMS: CPT: [id number] XR CHEST 1 V 66526 CHEST RADIOGRAPH - 1 view CLINICAL HISTORY: cough . COMPARISON: July 27, 2020. FINDINGS: Cardiac silhouette is normal in size. Mediastinum and hilar regions are unremarkable. No consolidation or effusion is seen. IMPRESSION: No acute disease at 1306 Reported and signed by: Gerald Aguirre MD CC: Rebecca Doty MD Technologist: DIMAS Jones Time: DAP (Gy m2): Air Kerma (mGy): Trscr Dt/Tm: 07/19/2022 (1306) by:[email or web address] Orig Print D/T: S: 07/19/2022 (1309) BATCH NO: N/A Name: GARY JEFFERS [facility] Phys: Vivi Hayes [address] [facility] : 1980 Age: 42 Sex: M Roni Culver Loc: T.ERS Exam Date: 07/19/2022 Status: REG ER PH: FAX: PAGE 1 Signed Report Coronavirus 2019 nCoV [id number] 19:15:00 Test Item Value Reference Range Interpretation Comments Coronavirus 2018 Positive NEGATIVE A Critical Va lue reported nCoV Bedside (test toFirst N mignon:BILLY Last code = Name:Nancy MOYA [id number]) READ BACK AND VERIFIEDby XU, on 1 08/20/21, @ 1915. THE ID NO W COVID-19 EUA HAS NOT BEE N FDA CLEARED ORAPPROVED. IT HAS BEEN AUTHORIZED BY Abdelrahman [facility] UNDER ANEMERGENCY USE AUTHORIZATION F OR USE BY AUTHORIZEDLABOR ATORIES AND PATIENT CARE SE [facility]. THE TEST HAS BEENAU THORIZED ONLY FOR THE DETECTI ON OF NUCLEIC ACID FROMSARS-C oV-2, NOT FOR ANY OTHER VIRUS ES OR PATHOGENS, AND ISONLY AUTHORIZED FOR THE DURATION OF THE DECLARAT ION THATCIRCUMSTANC ES EXIST JUSTIFYING THE AUTHORIZATION OFEMERGENCY USE OF IN VITRO DIAGNOSTIC TEST S FOR DETECTIONAND/OR DIAGNOSIS OF COVID-19 UNDER SECTION 564(B)(1) OF [facility], 21 U.S.C. 360bbb-3 (b)(1), UNLESS THE AUTH ORIZATION ISTERMINATED OR REVOKED SOONER.Negative results should be treat ed as presumptive and , ifinconsistent with clinical signs and sympt oms or necessaryfor pa tient managmeent, ann uld be tested with differenta uthorizd or cleared molecul ar tests. Negative result s donot preclude SARS-C ov-2 infection and s hould not be used asthe sole basis for patient managem ent decisions. Nega tiveresults should be consi dered in the context of a pa tient'srecent exposures, hist ory and presence of cli nical signs andsymptons con sistent with COVID-19. - XR KNEE 4 + V [id number] 14:50:00 [facility] : 1980 Sex: MPatient Name: GARY JEFFERS Unit No: [id number] EXAMS: CPT CODE: [id number] XR KNEE 4 + V RT [id number] EXAM: - XR HIP W/PEL UNI 2+V RT, - XR FEMUR MIN 2 VW RT, - XR KNEE 4 + V RT INDICATION: trauma LOCATION CODE: A1 COMPARISON: None available. TECHNIQUE: 2 views of the right hip/pelvis and femur and 3 views of the right knee were obtained. FINDINGS: Internal fixation hardware is present atthe right proximal femur with no evidence of hardware failure. The soft tissues are unremarkable. Noacute fracture or malalignment is seen. There is no joint effusion at the knee. IMPRESSION: No acutefracture or malalignment. t 1450 Reported and signed by: Rebecca Otto M.D. CC: Stepan Camacho MD Technologist: Yaima Jones Time: DAP (Gy m2): Air Kerma (mGy): Trscr Dt/Tm: 01/13/2021 (1450) by:[email or web address] Electronic Signature Date/Time: 01/13/2021 (1450)Orig Print D/T: S: 01/13/2021 (1453) Name: GARY JEFFERS [facility] Phys: [place] [address] : 1980 Age:40 Sex: [place] [id number] Loc: [place].ERS Exam Date: 01/13/2021 Status: REG ER PH: FAX: PAGE 1 Signed Report- XR FEMUR MIN 2 VW [id number] 14:50:00 [facility] : 1980 Sex: MPatient Name: GARY JEFFERS Unit No: [id number] EXAMS: CPT CODE: [id number] XR FEMUR MIN 2 [place] [id number] EXAM: - XR HIP W/PEL UNI 2+V RT, - XR FEMUR MIN 2 VW RT, - XR KNEE 4 + V RT INDICATION: trauma LOCATION CODE: A1 COMPARISON: None available. TECHNIQUE: 2 views of the right hip/pelvis and femur and 3 views of the right knee were obtained. FINDINGS: Internal fixation hardware is present at the right proximal femur with no evidence of hardware failure. The soft tissues are unremarkable. No acute fracture or malalignment is seen. There is no joint effusion at the knee. IMPRESSION: No acute fracture or malalignment. at 1450 Reported and signed by: Rebecca Otto M.D. CC: Stepan Camacho MD Technologist: Judith Jones Time: DAP (Gy m2): Air Kerma (mGy): Trscr Dt/Tm: 01/13/2021 (1450) by:[email or web address] Electronic Signature Date/Time: 01/13/2021 (1450)Orig Print D/T: S: 01/13/2021 (1453) Name: GARY JEFFERS [facility] Phys: LEERACHEL.06 - [place] [address] : 1980 Age: 40 [place]: [place] [id number] Loc: [place].ERS Exam Date: 01/13/2021 Status: REG ERPH: FAX: PAGE 1 Signed Report- XR HIP W/PEL UNI 2+V [id number] 14:50:00 [facility] : 1980 Sex: MPatient Name: GARY JEFFERS Unit No: [id number] EXAMS: CPT CODE: [id number] XR HIP W/PEL UNI 2+V RT [id number] EXAM: - XR HIP W/PEL UNI 2+V RT, - XR FEMUR MIN 2 VW RT, - XR KNEE 4 + V RT INDICATION: trauma LOCATION CODE: A1 COMPARISON: None available. TECHNIQUE: 2 views of the right hip/pelvisand femur and 3 views of the right knee were obtained. FINDINGS: Internal fixation hardware is present at the right proximal femur with no evidence of hardware failure. The soft tissues are unremarkable. No acute fracture or malalignment is seen. There is no joint effusion at the knee. IMPRESSION: Noacute fracture or malalignment. at 1450 Reported and signed by: Rebecca Otto M.D. CC: Stepan Camacho MD Technologist: Judith Hodge Fluoro Time: DAP (Gy m2): Air Kerma (mGy): Trscr Dt/Tm: 01/13/2021 (1450) by:[email or web address] Electronic Signature Date/Time: 01/13/2021 (1450)Orig Print D/T: S: 01/13/2021 (1453) [facility]: LEECH.06 - [place] [address] : 1980 Age: 40 Sex: [place] [address] Loc: [place].ERS Exam Date: 01/13/2021 Status: REGER PH: FAX: PAGE 1 Signed ReportBASIC METABOLIC [id number] 21:40:00 Test Item Value Reference Range Interpretation Comments SODIUM (test code 139 mmol/L 136-145 N = NA) POTASSIUM (test 3.8 MMOL/L 3.6-5.2 N code = K) CHLORIDE (test 104 MMOL/L 98-110 N code = CL) CARBON DIOXIDE 27 mEq/L 24-32 N (test code = CO2) GLUCOSE (test code 106 mg/dL 70-110 N = GLU) BLOOD UREA 14 mg/dL 7-18 N NITROGEN (test code = BUN) GLOMERULAR >=60 max >60 The estimated FILTRATION RATE estimate glomerular (test code = GFR) filtration rate is computed usingpatient ra ce, age (>18), sex, and serum creatinin e. If anyof the neede d data elements a re missing the Laboratory howie ot compute an estimation of t he glomerular filtration rate . CREATININE (test 0.88 mg/dL 0.60-1.30 N code = CREAT) CALCIUM (test code 9.1 mg/dL 8.6-10.3 N = CA) BASIC METABOLIC [id number] 21:36:00 Test Item Value Reference Range Interpretation [...] code = CA) mg/dL 8.6-10.3 BASIC METABOLIC [id number] 21:36:00 Test Item Value Reference Range Interpretation [...] CA) 9.1 mg/dL 8.6-10.3 N CBC W/AUTO [id number] 21:32:00 Test Item Value Reference Range Interpretation [...] BA#) 0.08 K/mm3 0.0-0.1 N TROPONIN I [id number] 21:28:00 Test Item Value Reference Range Interpretation Comments TROPONIN I RAPID 0.00 ng/mL 0.00-0.08 N ISTAT TROP ONIN I (test code = CRITERIA0.00-0. 08 ng/mL - TROPIRAP) Negative>0.08 n g/mL - Positive The us [...] methodology is used. - XR CHEST 1 [id number] 21:02:00 [facility] : 1980 Sex: MPatient Name: GARY JEFFERS Unit No: [id number] EXAMS: CPT: [id number] XR CHEST 1 V 82969 AP CHEST 1 VIEW COMPARISON: June 05, 2020 HISTORY: Chest Pain FINDINGS: There is no focal lung consolidation. There is no pleural effusion. There is no pneumothorax. The cardiac silhouette is normal. There is no acute osseous abnormality. IMPRESSION: 1. No acute cardiopulmonary findings at 2101 Reported and signed by: Esmer Norton MD CC: Ezekiel Wick MD; Masha Schwarz NP; Newton Renee MD Technologist: AMADEO Jones Time: DAP (2): Air Kerma (mGy): Trscr Dt/Tm: 07/27/2020 (2101) by:[email or web address] Orig Print D/T: S: 07/27/2020 (2104) BATCH NO: N/A Name: GARY JEFFERS [facility] Phys: Masha Castro NP [address] [facility] : 1980 Age: 40 Sex: Michelle Culver,Roni Loc: TRON Exam Date: 07/27/2020 Status: REG ER PH: FAX: PAGE 1 Signed ReportCBC W/AUTO [id number] 21:09:00 Test Item Value Reference Range Interpretation [...] = BA#) 0.05 K/mm3 0.0-0.1 N VANCOMYCIN [id number] 08:37:00 Test Item Value Reference Range Interpretation Comments VANCOMYCIN TROUGH (test code = 11.0 ug/ml 10.0-20.0 N VANCT) VANCOMYCIN [id number] 20:20:00 Test Item Value Reference Range Interpretation Comments VANCOMYCIN TROUGH (test code = 13.7 ug/ml 10.0-20.0 N VANCT) COVID 19 Asymptomatic IH [id number] 11:59:00 Test Item Value Reference Range Interpretation [...] AND SYMPTOMS CONSIS TENT WITHCOVID-19. COMPREHENSIVE METABOLIC [id number] 16:12:00 Test Item Value Reference Range Interpretation [...] CA) BILIRUBIN TOTAL 0.6 mg/dL 0.2-1.0 N F-tqnnlu-z-b enzoquino (test code = BILT) ne imine (NAPQI), a metabolite ofacetaminophen (paracetamol), may generate errone ously lowresults in s amples for patients th at have taken toxi c dosesof acetami nophen (paracetamol). SGOT/AST (test 22 UNITS/L 10-42 N code = AST) SGPT/ALT (test 25 UNITS/L 10-40 N code = ALT) ALKALINE 77 UNITS/L 38-126 N PHOSPHATASE (test code = ALKP) CBC W/O [id number] 15:54:00 Test Item Value Reference Range Interpretation [...] code = PLT) 370 K/mm3 130-400 N [id number] 05:16:00 Test Item Value Reference Range Interpretation Comments PHOSPHOROUS (test code = PHOS) 2.2 mg/dL 2.5-4.9 L [id number] 05:16:00 Test Item Value Reference Range Interpretation Comments MAGNESIUM (test code = MAG) 2.3 mg/dL 1.7-2.8 N THYROID STIMULATING [id number] 05:16:00 Test Item Value Reference Range Interpretation Comments THYROID STIMULATING HORMONE (test 3.52 mIU/mL 0.38-5.60 N code = TSH) [id number] 04:57:00 Test Item Value Reference Range Interpretation Comments PHOSPHOROUS (test code = PHOS) 2.2 mg/dL 2.5-4.9 L [id number] 04:57:00 Test Item Value Reference Range Interpretation Comments MAGNESIUM (test code = MAG) 2.3 mg/dL 1.7-2.8 N THYROID STIMULATING [id number] 04:57:00 Test Item Value Reference Range Interpretation Comments THYROID STIMULATING HORMONE (test mIU/mL 0.38-5.60 code = TSH) DRUGS OF ABUSE SCREEN [id number] 03:49:00 Test Item Value Reference Range Interpretation [...] code = NEGATIVE NEGATIVE BUPRESCRT) BASIC METABOLIC [id number] 03:09:00 Test Item Value Reference Range Interpretation [...] mg/dL 8.6-10.3 N = CA) CBC W/AUTO [id number] 03:08:00 Test Item Value Reference Range Interpretation [...] BA#) 0.08 K/mm3 0.0-0.1 N BASIC METABOLIC [id number] 03:07:00 Test Item Value Reference Range Interpretation [...] CA) 9.7 mg/dL 8.6-10.3 N BASIC METABOLIC [id number] 03:05:00 Test Item Value Reference Range Interpretation [...] code = CA) mg/dL 8.6-10.3 TROPONIN I [id number] 02:43:00 Test Item Value Reference Range Interpretation Comments TROPONIN I RAPID 0.00 ng/mL 0.00-0.08 N ISTAT TROP ONIN I (test code = CRITERIA0.00-0. 08 ng/mL - TROPIRAP) Negative>0.08 n g/mL - Positive The us e of serial sampling and te sting protocol is are commended practice.An amena vated troponin level alone is often not suffi cient fordiagnosis of myocardial infarction. Juan torres results obtaine d by different assay s may vary.Evaluation of the extent of myoca rdial damage based on increase of troponin would be valid only if similar methodology is used. - XR CHEST 1 [id number] 02:21:00 [facility] : 1980 Sex: MPatient Name: GARY JEFFERS Unit No: [id number] EXAMS: CPT: [id number] XR CHEST 1 V 15644 CHEST 1 VIEW CLINICAL HISTORY: Chest pain COMPARISON: 05/21/2020. A single frontal view of the chest is submitted. FINDINGS: The cardiac silhouette is normal in size. Vascularity appears normal. The lungs are clear. No pleural effusion or pneumothorax is seen. No osseous abnormalities are seen. IMPRESSION: Negative chest radiograph. at 0221 Reported and signed by: Davonte Ceron MD CC: sOwaldo Cordoba MD; Ezekiel Wick MD Technologist: Mo Bermudez Fluoro Time: DAP (Gy m2): Air Kerma (mGy): Trscr Dt/Tm: 06/05/2020 (220) by:[email or web address] Orig Print D/T: S: 06/05/2020 (0224) BATCH NO: N/A Name: GARY JEFFERS [facility] Phys: BERDA.Emy - Oswaldo Cordoba [address] [facility] : 1980 Age: 40 Sex: Roni Israel Loc: T.ERS Exam Date: 06/05/2020 Status: REG ER PH: FAX: PAGE 1 Signed ReportCBC W/AUTO [id number] 00:16:00 Test Item Value Reference Range Interpretation [...] = BA#) 0.05 K/mm3 0.0-0.1 N REDRAW-CLOTTED [id number]/[place] 2346BASIC METABOLIC [id number] 23:52:00 Test Item Value Reference Range Interpretation [...] 8.6-10.3 N = CA) REDRAW-HEMOSVEN 9BASIC METABOLIC [id number] 23:48:00 Test Item Value Reference Range Interpretation [...] = CA) mg/dL 8.6-10.3 REDRAW-HEMOSVEN 2319BASIC METABOLIC [id number] 23:48:00 Test Item Value Reference Range Interpretation [...] = CA) 9.8 mg/dL 8.6-10.3 N REDRAW-HEMOSVEN [id number] GLYCOSYLATED [id number] 11:49:00 Test Item Value Reference Range Interpretation [...] code = LDLC) CORONARY RISK FACTOR 5.81 CHOL/H DL RISK MALE: (test code = RISK) 1/2 AVG 3 .43 FEMALE: 1/2 AVG 3.27 A VG 4.97 AVG 4.44 2X AVG 9.55 2X AVG 7.05 3X AVG 23.39 3X AVG 11.04~~~~~~~~~~ ~~~~~~~~ ~~~~~~~~~~~~~~~ ~~~~~~~~ ~~~~~~~~~~~~~~~ ~~~~Nanette onal Cholestero l Education (NCEP ) Guidelines:~~~~ ~~~~~~~~ ~~~~~~~~~~~~~~~ ~~~~~~~~ ~~~~~~~~~~~~~~~ ~~~~~~~~ ~~ HDL Cholesterol<4 0mg/dL: HDL Cholesterol (Major risk factor for CHD)>60mg/dL: H DL Cholesterol (Ne gative risk factor for CHD)40-59mg/dL: Borderline Risk LDL Cholesterol<1 00mg/dL: Desirable LDL-C [id number] 0-159mg/ dL: Borderline High Risk LDL-C nlviqhqbiuujb39 0-189mg/ dL: High risk L DL-C concentration H DL-LDL Cholesterol is affected by a number of factors suchas smoking, age and sex.~~~~~~~~~~~ ~~~~~~~~ ~~~~~~~~~~~~~~~ ~~~~~~~~ ~~~~~~~~~~~~~~~ ~~~ [id number] 05:38:00 Test Item Value Reference Range Interpretation Comments TROPONIN-I 0.01 ng/mL 0.00-0.03 N Correlation wit h serial (test code = results, other cardiac TROPI) markers andclin ical findings is necessary to determine the clinicalsignifi cance of this result. Results using different metho dologies should not be c omparedto one another as dannielle titative results may lance y by method. [id number] 00:33:00 Test Item Value Reference Range Interpretation Comments TROPONIN-I 0.00 ng/mL 0.00-0.03 N Correlation wit h serial (test code = results, other cardiac TROPI) markers andclin ical findings is necessary to determine the clinicalsignifi cance of this result. Results using different metho dologies should not be c omparedto one another as dannielle titative results may lance y by method. [id number] 00:33:00 Test Item Value Reference Range Interpretation [...] VALU E OF DVT OR PE. D-DIMER RAFIF UES >500 ng/mL ARE NOT D IAGNOSTIC FOR DVT,PEOR DIC WI THOUT OTHER CONFIRMATORY TE STS AND APPROPRIATECLIN ICAL EVALUATIONS. [id number] 19:42:00 Test Item Value Reference Range Interpretation Comments TROPONIN-I 0.00 ng/mL 0.00-0.03 N Correlation wit h serial (test code = results, other cardiac TROPI) markers andclin ical findings is necessary to determine the clinicalsignifi cance of this result. Results using different metho dologies should not be c omparedto one another as dannielle titative results may lance y by method. BASIC METABOLIC [id number] 14:16:00 Test Item Value Reference Range Interpretation [...] mg/dL 8.6-10.3 N = CA) LIVER FUNCTION [id number] 14:16:00 Test Item Value Reference Range Interpretation Comments TOTAL PROTEIN (test 8.1 g/dL 6.0-8.3 N code = PROT) ALBUMIN (test code = 4.5 g/dL 3.2-5.5 N ALB) BILIRUBIN TOTAL 1.0 mg/dL 0.2-1.0 N H-cmbiqp-c-b enzoquinone (test code = BILT) imine (NA [...] N (test code = ALKP) BASIC METABOLIC [id number] 14:14:00 Test Item Value Reference Range Interpretation [...] mg/dL 8.6-10.3 N = CA) LIVER FUNCTION [id number] 14:14:00 Test Item Value Reference Range Interpretation Comments TOTAL PROTEIN (test code = PROT) g/dL 6.0-8.3 ALBUMIN (test code = ALB) g/dL 3.2-5.5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
[2022-09-01 18:08] LABS: Absolute Lymphocytes (CBC) 1.1 K/uL (0.7-4.9); Hematocrit 51.8 % (39.6-49.0); Lymphocytes % 15.4 % (15.3-44.8); MCV 77.3 fL (80-100); MPV 7.9 fL (7.6-11.3)
[2022-09-01 18:18] LABS: Potassium 3.5 mmol/L (3.5-5.1)
[2022-09-01] MEDS ORDERED: IBUPROFEN 200 MG TAB PO ONE (18:36)
[2022-09-01 18:41] LABS: SARS-COV-2 RT PCR NEGATIVE (NEGATIVE)
--- NOTE | 2022-09-01 18:45 | RAD REPORT ---
EXAM DESCRIPTION: RADDalet Pa And Lat (2 Views)09/01/2022 6:25 pm CLINICAL HISTORY: Cough COMPARISON: Chest Single View dated 11/15/2020 TECHNIQUE: PA and lateral views of the chest. FINDINGS: The lungs are clear. No pneumothorax or effusion. The cardiomediastinal contours are unrem arkable. IMPRESSION: No acute cardiopulmonary process.
[2022-09-01] MEDS ORDERED: NA CHLORIDE 0.9% 1,000 ML ONE (19:24)
--- NOTE | 2022-09-01 20:29 | EDPHYS ---
Physician Documentation [facility] Name: Skyler Jeffers Age: 42 yrs Sex: Male : 1980 Arrival Date: 09/01/2022 Time: 16:54 Bed DIS1 Private MD: ED Physician Shahid Nieves HPI: 09/01 20:21 This 42 yrs old Male presents to ER via Ambulatory with complaints of Dizziness, Cough, kb Pain All Over, Fever. 20:21 The patient or guardian reports cough, that is intermittent, described as moderate, flu kb symptoms, low-grade fever, myalgias. 20:21 Onset: The symptoms/episode began/occurred yesterday. Severity of symptoms: At their kb worst the symptoms were moderate, in the emergency department the symptoms are unchanged. Modifying factors: The symptoms are alleviated by nothing, the symptoms are aggravated by nothing. Associated signs and symptoms: Pertinent positives: fever, rhinorrhea, Pertinent negatives: chest pain, diarrhea, ear ache, nausea, sore throat, vomiting. The patient has experienced similar episodes in the past. The patient has not recently seen a physician. Historical: - Allergies: 17:25 Morphine; aa5 - PMHx: 17:25 Hypertension; Hypertensive disorder; Bipolar disorder; aa5 - PSHx: 17:25 None; aa5 - Immunization history:: Client reports receiving the 2nd dose of the Covid vaccine. - Social history:: Smoking status: Patient denies any tobacco usage or history of. ROS: 20:20 Abdomen/GI: Negative for abdominal pain, nausea, vomiting, diarrhea, and constipation. kb 20:20 Constitutional: Positive for body aches, chills, fatigue, fever, malaise. 20:20 ENT: Positive for sinus congestion. 20:20 Respiratory: Positive for cough. 20:20 Neuro: Positive for dizziness, headache. 20:20 All other systems are negative. Exam: 20:20 Constitutional: This is a well developed, well nourished patient who is awake, alert, kb and in no acute distress. Head/Face: Normocephalic, atraumatic. ENT: Moist Mucous membranes Cardiovascular: Regular rate and rhythm with a normal S1 and S2. No gallops, murmurs, or rubs. No pulse deficits. Respiratory: Respirations even and unlabored. No increased work of breathing. Talking in full sentences Abdomen/GI: Soft, non-tender. No distention Skin: Warm, dry with normal turgor. Normal color. MS/ Extremity: Pulses equal, no cyanosis. Neurovascular intact. Full, normal range of motion. Neuro: Awake and alert, GCS 15, oriented to person, place, time, and situation. Moves all extremities. Normal gait. Vital Signs: 17:24 BP 147 / 95; Pulse 129; Resp 20 S; Temp 101.1(O); Pulse Ox 98% on R/A; Weight 81.65 kg aa5 (R); Height 5 ft. 5 in. (165.10 cm) (R); 18:46 BP 145 / 85; Pulse 120; Resp 18 S; Temp 100.9(TE); Pulse Ox 95% on R/A; iw 17:24 Body Mass Index 29.95 (81.65 kg, 165.10 cm) aa5 MDM: 17:08 Patient medically screened. kb 20:21 Data reviewed: vital signs, nurses notes. kb 20:21 Differential Diagnosis: Bronchitis Influenza Upper Respiratory Infection Sinusitis. kb Counseling: I had a detailed discussion with the patient and/or guardian regarding: the historical points, exam findings, and any diagnostic results supporting the discharge/admit diagnosis, lab results, radiology results, the need for outpatient follow up, a family practitioner, to return to the emergency department if symptoms worsen or persist or if there are any questions or concerns that arise at home. ED course: Patient is a 42-year-old male who presents with fever, cough, congestion, headache and dizziness that started yesterday. States he has been dealing with the symptoms intermittently since May. On exam lungs clear bilaterally, respirations even and unlabored. Patient nontoxic in appearance and tolerating p.o. intake. Patient educated on diagnostic results and need for follow-up with PCP. Verbal understanding received.. 20:29 ED course: Pt reports steroids make him agitated so he doesn't want to take them. . kb 09/01 17:22 Order name: COVID-19/FLU A+B/RSV; Complete Time: 18:53 kb 09/01 17:22 Order name: Chest Pa And Lat (2 Views) XRAY; Complete Time: 18:53 kb 09/01 17:22 Order name: Orthostatics kb 09/01 17:22 Order name: CBC with Diff; Complete Time: 18:22 kb 09/01 17:22 Order name: Basic Metabolic Panel; Complete Time: 18:22 kb 09/01 17:22 Order name: IV Start; Complete Time: 18:07 kb 09/01 20:00 Order name: Vital Signs kb Administered Medications: 18:35 Drug: Ibuprofen 600 mg Route: PO; iw 19:30 Follow up: Response: No adverse reaction; Pain is decreased vc1 19:30 Drug: NS 0.9% 1000 ml Route: IV; Rate: 1000 ml; Site: left hand; iw 20:30 Follow up: Response: No adverse reaction; Marked relief of symptoms; IV Status: vc1 Completed infusion; IV Intake: 1000ml 20:28 CANCELLED (Other Intervention Used): SOLU-Medrol (methylPrednisoLONE) 125 mg IVP once kb 20:58 Drug: Rocephin (cefTRIAXone) 1 grams Route: IV; Rate: calculated rate; Site: left hand; pf1 21:02 Follow up: Response: No adverse reaction; IV Status: Completed infusion; IV Intake: [id number] Disposition Summary: 09/01/22 20:29 Discharge Ordered Location: Home kb Condition: Stable kb Diagnosis - Cough kb - Fever, unspecified kb Followup: kb - With: Private Physician - When: 2 - 3 days - Reason: Recheck today's complaints, Continuance of care, Re-evaluation by your physician Followup: kb - With: Emergency Department - When: As needed - Reason: Worsening of condition Discharge Instructions: - Discharge Summary Sheet kb - Cough, Adult, [id number] kb Forms: - Medication Reconciliation Form kb - Thank You Letter kb - Antibiotic Education kb - Prescription Opioid Use kb Prescriptions: - Augmentin 875-125 mg Oral Tablet - take 1 tablet by ORAL route every 12 hours for 10 days; 20 tablet; Refills: 0, kb Product Selection Permitted Signatures: Dispatcher [employer] Mavis Stallings FNP-C FNP-Laila Hager RN Apple Doyle RN RN aa5 Yamilet brewer RN RN pf1 Zelda Grace RN vc1 Corrections: (The following items were deleted from the chart) 20:28 20:19 SOLU-Medrol (methylPrednisoLONE) 125 mg IVP once ordered. kb kb
--- NOTE | 2022-09-01 20:29 | ER ---
Nurse's Notes [facility] Name: Skyler Jeffers Age: 42 yrs Sex: Male : 1980 Arrival Date: 09/01/2022 Time: 16:54 Bed DIS1 Private MD: Diagnosis: Cough;Fever, unspecified Presentation: 09/01 17:24 Chief complaint: Patient states: headache, dizziness, fever, cough since last night. aa5 Coronavirus screen: cough unrelated to allergies, headache. Ebola Screen: Patient denies travel to an Ebola-affected area in the 21 days before illness onset. Initial Sepsis Screen: Does the patient meet any 2 criteria? Temp <36.0*C (96.8*F)) or > 38.3*C (100.9*F). HR > 90 bpm. Yes Does the patient have a suspected source of infection? No. Patient's initial sepsis screen is negative. Risk Assessment: Do you want to hurt yourself or someone else? Patient reports no desire to harm self or others. Onset of symptoms was August 2022. 17:24 Method Of Arrival: Ambulatory aa5 17:24 Acuity: ARY 3 aa5 Triage Assessment: 19:00 General: Appears in no apparent distress. uncomfortable, ill, Behavior is calm, vc1 cooperative, appropriate for age. Pain: Complains of pain in "All over". EENT: Reports nasal congestion. Neuro: No deficits noted. Cardiovascular: No deficits noted. Respiratory: Airway is patent Respiratory effort is even, unlabored, Respiratory pattern is regular, symmetrical. Respiratory: Reports cough that is. GI: No deficits noted. No signs and/or symptoms were reported involving the gastrointestinal system. : No deficits noted. No signs and/or symptoms were reported regarding the genitourinary system. Derm: No deficits noted. No signs and/or symptoms reported regarding the dermatologic system. Musculoskeletal: No deficits noted. No signs and/or symptoms reported regarding the musculoskeletal system. Historical: - Allergies: 17:25 Morphine; aa5 - PMHx: 17:25 Hypertension; Hypertensive disorder; Bipolar disorder; aa5 - PSHx: 17:25 None; aa5 - Immunization history:: Client reports receiving the 2nd dose of the Covid vaccine. - Social history:: Smoking status: Patient denies any tobacco usage or history of. Screenin:31 [facility] ED Fall Risk Assessment (Adult) Score/Fall Risk Level 0 - 2 = Low Risk. Abuse iw screen: Denies threats or abuse. Denies injuries from another. Nutritional screening: No deficits noted. Tuberculosis screening: No symptoms or risk factors identified. Assessment: 18:47 Reassessment: Patient appears in no apparent distress at this time. Patient and/or iw family updated on plan of care and expected duration. Pain level reassessed. Patient is alert, oriented x 3, equal unlabored respirations, skin warm/dry/pink. 19:31 Reassessment: Patient appears in no apparent distress at this time. Patient and/or iw family updated on plan of care and expected duration. Pain level reassessed. Patient is alert, oriented x 3, equal unlabored respirations, skin warm/dry/pink. 20:30 Reassessment: Patient and/or family updated on plan of care and expected duration. Pain vc1 level reassessed. Patient is alert, oriented x 3, equal unlabored respirations, skin warm/dry/pink. Vital Signs: 17:24 BP 147 / 95; Pulse 129; Resp 20 S; Temp 101.1(O); Pulse Ox 98% on R/A; Weight 81.65 kg aa5 (R); Height 5 ft. 5 in. (165.10 cm) (R); 18:46 BP 145 / 85; Pulse 120; Resp 18 S; Temp 100.9(TE); Pulse Ox 95% on R/A; iw 17:24 Body Mass Index 29.95 (81.65 kg, 165.10 cm) aa5 ED Course: 16:54 Patient arrived in ED. mr 17:08 Mavis Rincon FNP-C is PHCP. kb 17:08 Shahid Nieves MD is Attending Physician. kb 17:24 Arm band placed on. aa5 17:25 Triage completed. aa5 18:26 Chest Pa And Lat (2 Views) XRAY In Process Unspecified. EDMS 18:30 Inserted saline lock: 22 gauge in left hand, using aseptic technique. iw 18:35 Laila Baez, RN is Primary Nurse. iw 19:00 Patient has correct armband on for positive identification. Bed in low position. Call vc1 light in reach. Pulse ox on. NIBP on. 21:00 No provider procedures requiring assistance completed. IV discontinued, intact, vc1 bleeding controlled, No redness/swelling at site. Pressure dressing applied. Administered Medications: 18:35 Drug: Ibuprofen 600 mg Route: PO; iw 19:30 Follow up: Response: No adverse reaction; Pain is decreased vc1 19:30 Drug: NS 0.9% 1000 ml Route: IV; Rate: 1000 ml; Site: left hand; iw 20:30 Follow up: Response: No adverse reaction; Marked relief of symptoms; IV Status: vc1 Completed infusion; IV Intake: 1000ml 20:28 CANCELLED (Other Intervention Used): SOLU-Medrol (methylPrednisoLONE) 125 mg IVP once kb 20:58 Drug: Rocephin (cefTRIAXone) 1 grams Route: IV; Rate: calculated rate; Site: left hand; pf1 21:02 Follow up: Response: No adverse reaction; IV Status: Completed infusion; IV Intake: [id number] Medication: 20:30 VIS not applicable for this client. vc1 Intake: 20:30 IV: 1000ml; Total: 1000ml. vc1 21:02 IV: 10ml; Total: 1010ml. vc1 Outcome: 20:29 Discharge ordered by MD. kb 21:06 Discharged to home ambulatory. pf1 21:06 Condition: improved 21:06 Discharge instructions given to patient, Instructed on discharge instructions, follow up and referral plans. Demonstrated understanding of instructions, follow-up care, medications, Prescriptions given X 1. 21:06 Patient left the ED. pf1 Signatures: Dispatcher [employer] EDTX Mavis Rincon, CARLOS ENRIQUE FRANKELP-Shruthi Yoon Laila Baez RN RN iw Calderon, Audri, RN RN aa5 Zelda Grace RN RN vc1 Yamilet brewer, JUSTIN RN pf1 Corrections: (The following items were deleted from the chart) 17:30 17:24 Initial Sepsis Screen: Does the patient meet any 2 criteria? No. Patient's aa5 initial sepsis screen is negative. Does the patient have a suspected source of infection? No. Patient's initial sepsis screen is negative. aa5 17:30 17:24 Pulse 129bpm; Resp 20bpm; Spontaneous; Pulse Ox 98% RA; Temp 101.1F Oral; aa5 aa5 17:31 17:24 BP 147 / 95; Pulse 129bpm; Resp 20bpm; Spontaneous; Pulse Ox 98% RA; Temp 101.1F aa5 Oral; aa5
[2022-09-01] MEDS ORDERED: CEFTRIAXONE 1000 MG/VIAL ONE (21:00)
[2022-09-01 21:11] VITALS: BP 145/85; TEMP 100.9; O2SAT 95
== END 2022-09-01 21:06 | disposition home or self-care (01) ==
LOC: ER 16:49
DX: R05.9 Cough, unspecified (principal); R50.9 Fever, unspecified; Z20.822 Contact with and (suspected) exposure to COVID-19
CPT/HCPCS: 0241U; 36415; 71046; 80048; 85025; 96361; 96374; 99284; J7030